=== PATIENT | male | born 1975 | race Native Hawaiian/Other Pacific Islander ===

== ENCOUNTER 2019-01-18 13:26 | Inpatient (IN) | payer OTHER ==
[2019-01-18] MEDS ORDERED: IBUPROFEN 800 MG TAB PO ONE (13:41)
[2019-01-18] MEDS ORDERED: ACETAMINOPHEN 325 MG TAB PO ONE (13:43)
--- NOTE | 2019-01-18 13:45 | Event Note ---
ED Screening Note Date of service: 01/18/19 Time: 13:39 ED Screening Note: Pt complains of cough, fever, and body aches x 4 days arrived from [facility] fever of 103 at home denies productive cough +SOB +smoker This initial assessment/diagnostic orders/clinical plan/treatment(s) is/are sub ject to change based on patients health status, clinical progression and re- assessment by fellow clinical providers in the ED. Further treatment and workup at subsequent clinical providers discretion. Patient/guardian urged not to elope from the ED as their condition may be serious if not clinically assessed and managed. Initial orders include:
--- NOTE | 2019-01-18 14:06 | XRay Report ---
CHEST 2 VIEWS INDICATION: shortness of breath, cough, fever. COMPARISON: None FINDINGS: Support devices: None. Heart: Within normal limits. Lungs/pleura: Mild patchy left basilar airspace disease with otherwise clear lungs. No pneumothorax. Additional findings: None. IMPRESSION: 1. Findings worrisome for pneumonia in the left lower lobe. Signer Name: Sharad Irwin MD Signed: 01/18/2019 2:02 PM Workstation Name: [id number]
[2019-01-18 14:41] LABS: Basophils % (Auto) 0.3 % (0.0-1.8); Eosinophils % (Auto) 0.2 % (0.0-4.3); Hematocrit 46.9 % (35.5-45.6); Lymphocytes # (Auto) 0.6 K/mm3 (1.2-5.4); Lymphocytes % (Auto) 9.3 % (13.4-35.0); Mean Corpuscular HGB Conc 34 % (32-34); Mean Corpuscular Volume 91 fl (84-94); Monocytes # (Auto) 0.3 K/mm3 (0.0-0.8); Monocytes % (Auto) 5.1 % (0.0-7.3); Platelet Count 136 K/mm3 (140-440); Red Blood Count 5.14 M/mm3 (3.65-5.03); Red Cell Distribution Width 13.4 % (13.2-15.2)
[2019-01-18] MEDS ORDERED: IPRATROPIUM/ALBUTEROL SULFATE 3 ML AMPUL.NEB IH ONE (14:48)
[2019-01-18] MEDS ORDERED: methylPREDNISolone Sod Succinate 125 MG/2 ML INJ IV ONE (14:48)
--- NOTE | 2019-01-18 14:51 | Emergency Department Report ---
ED General Adult HPI - General Chief complaint: Nausea/Vomiting/Diarrhea Stated complaint: FLU LIKE SYMPTOMS Time Seen by Provider: 01/18/19 14:40 Source: patient Mode of arrival: Ambulatory Limitations: Language Barrier - History of Present Illness Initial comments: Patient is a 43-year-old male that presents emergent with complaints of flulike symptoms. Patient states she's had a fever for 4 days. Patient states his cough started 2-3 weeks ago. Patient is also complaining of nausea vomiting diarrhea. Patient states he recently traveled to [place] for work and returned this morning. Patient states while in [place] he received antibiotic therapy but did not improve actually made him feel worse. Patient states that his fever has been extremely high going on for 4 days and is not responding to [id number] antipyretics. Patient states he feels warm. Patient states unable to hold any food or water down. Patient denies getting a flu shot this year. Patient denies past medical history. Patient states she's having difficulty breathing. -: Sudden Severity scale (0 -10): 8 - Related Data Home Medications Medication Instructions Recorded Confirmed Last Taken No Known Home Medications [No 01/18/19 01/18/19 Unknown Reported Home Medications] Allergies Allergy/AdvReac Type Severity Reaction Status Date / Time No Known Allergies Allergy Unverified 01/18/19 13:30 ED Review of Systems ROS: Stated complaint: FLU LIKE SYMPTOMS Other details as noted in HPI Constitutional: chills, fever Eyes: denies: eye pain, eye discharge, vision change ENT: denies: ear pain, throat pain Respiratory: cough, shortness of breath, SOB with exertion, SOB at rest, wheezing Cardiovascular: denies: chest pain, palpitations Endocrine: no symptoms reported Gastrointestinal: denies: abdominal pain, nausea, diarrhea Genitourinary: denies: urgency, dysuria Musculoskeletal: denies: back pain, joint swelling, arthralgia Skin: denies: rash, lesions Neurological: denies: headache, weakness, paresthesias Psychiatric: denies: anxiety, depression Hematological/Lymphatic: denies: easy bleeding, easy bruising ED Past Medical Hx - Past Medical History Previous Medical History?: No - Surgical History Past Surgical History?: No - Family History Family history: no significant - Social History Smoking Status: Current Every Day Smoker Substance Use Type: None - Medications Home Medications: Home Medications Medication Instructions Recorded Confirmed Last Taken Type No Known Home Medications [No 10/30/19 10/30/19 Unknown History Reported Home Medications] ED Physical Exam - General Limitations: No Limitations, Language Barrier General appearance: alert, in distress - Head Head exam: Present: atraumatic, normocephalic - Eye Eye exam: Present: normal appearance, PERRL Pupils: Present: normal accommodation - ENT ENT exam: Present: mucous membranes dry - Neck Neck exam: Present: normal inspection - Respiratory Respiratory exam: Present: respiratory distress, wheezes, rhonchi, chest wall tenderness, decreased breath sounds - Cardiovascular Cardiovascular Exam: Present: regular rate, normal rhythm. Absent: systolic murmur, diastolic murmur, rubs, gallop - GI/Abdominal GI/Abdominal exam: Present: soft, normal bowel sounds. Absent: distended, tenderness, guarding - Rectal Rectal exam: Present: deferred - Extremities Exam Extremities exam: Present: normal inspection - Back Exam Back exam: Present: normal inspection - Neurological Exam Neurological exam: Present: alert, oriented X3 - Psychiatric Psychiatric exam: Present: normal affect, normal mood - Skin Skin exam: Present: warm, dry, intact, normal color. Absent: rash ED Course Vital Signs 01/18/19 01/18/19 01/18/19 13:31 13:39 13:47 Temperature 103.0 F H 103.1 F H Pulse Rate 104 H 86 Pulse Rate [ Anterior Bilateral Throughout] Respiratory 18 12 18 Rate Respiratory Rate [Anterior Bilateral Throughout] Blood Pressure 122/84 148/82 O2 Sat by Pulse 95 100 Oximetry 01/18/19 01/18/19 01/18/19 13:48 14:00 14:01 Temperature Pulse Rate Pulse Rate [ Anterior Bilateral Throughout] Respiratory 18 18 Rate Respiratory Rate [Anterior Bilateral Throughout] Blood Pressure O2 Sat by Pulse 96 96 Oximetry 01/18/19 01/18/19 01/18/19 14:10 14:15 14:31 Temperature 100.0 F H Pulse Rate Pulse Rate [ Anterior Bilateral Throughout] Respiratory Rate Respiratory Rate [Anterior Bilateral Throughout] Blood Pressure 124/77 110/62 O2 Sat by Pulse 93 96 Oximetry 01/18/19 01/18/19 01/18/19 14:45 15:00 15:15 Temperature Pulse Rate Pulse Rate [ Anterior Bilateral Throughout] Respiratory Rate Respiratory Rate [Anterior Bilateral Throughout] Blood Pressure 110/62 114/70 133/82 O2 Sat by Pulse 98 95 96 Oximetry 01/18/19 01/18/19 01/18/19 15:31 15:45 15:49 Temperature Pulse Rate Pulse Rate [ 79 Anterior Bilateral Throughout] Respiratory Rate Respiratory 17 Rate [Anterior Bilateral Throughout] Blood Pressure 115/58 108/48 O2 Sat by Pulse 96 98 Oximetry 01/18/19 01/18/19 01/18/19 16:00 16:15 16:30 Temperature Pulse Rate Pulse Rate [ Anterior Bilateral Throughout] Respiratory Rate Respiratory Rate [Anterior Bilateral Throughout] Blood Pressure 118/67 118/67 112/64 O2 Sat by Pulse 98 99 96 Oximetry 01/18/19 01/18/19 01/18/19 16:45 17:00 17:15 Temperature 99.7 F H Pulse Rate 97 H Pulse Rate [ Anterior Bilateral Throughout] Respiratory Rate Respiratory Rate [Anterior Bilateral Throughout] Blood Pressure 135/82 129/80 137/60 O2 Sat by Pulse 99 96 99 Oximetry 01/18/19 01/18/19 01/18/19 17:30 17:45 18:00 Temperature Pulse Rate Pulse Rate [ Anterior Bilateral Throughout] Respiratory Rate Respiratory Rate [Anterior Bilateral Throughout] Blood Pressure 121/61 137/91 135/83 O2 Sat by Pulse 99 97 96 Oximetry 01/18/19 01/18/19 01/18/19 18:11 18:21 18:30 Temperature Pulse Rate Pulse Rate [ Anterior Bilateral Throughout] Respiratory Rate Respiratory Rate [Anterior Bilateral Throughout] Blood Pressure 135/83 121/54 134/73 O2 Sat by Pulse 96 97 95 Oximetry - Reevaluation(s) Reevaluation #1: Discussed all results with patient. I discussed plan of care and admission with patient. Patient agrees with plan of care and admission. Patient will be admitted to the hospital service. Patient is currently 92% on 1 L. Oxygen will be increased. 01/18/19 16:38 - Consultations Consultation #1: Hospitalist consult for admission. Hospitalist admit patient. 01/18/19 16:39 ED Medical Decision Making - Lab Data Result diagrams: 01/18/19 14:24 01/18/19 15:36 - Radiology Data Radiology results: report reviewed, image reviewed CHEST 2 VIEWS INDICATION: shortness of breath, cough, fever. COMPARISON: None FINDINGS: Support devices: None. Heart: Within normal limits. Lungs/pleura: Mild patchy left basilar airspace disease with otherwise clear lungs. No pneumothorax. Additional findings: None. IMPRESSION: 1. Findings worrisome for pneumonia in the left lower lobe. - Medical Decision Making pt is a 43-year-old male that presents to emergency room for cough, fever, shortness of breath. Patient also complains of wheezing. Patient had recent travel outside the country. Patient found to have a left lower lung pneumonia. Patient given antibiotics and steroids. Patient found to be wheezing and given a breathing treatment as well. Patient responded well to treatment. Patient appears to have a influenza even though his flu is negative. Patient's labs unremarkable. Patient admitted to the hospitalist service. Due to the patient's recent travel the patient's differential would also include Legionella's disease, post influenza pneumonia, shortness of breath, bronchitis, hypoxia, cough - Differential Diagnosis cough, fever, shortness of breath, pneumonia, flu Critical Care Time: Yes Critical care time in (mins) excluding proc time.: 35 Critical care attestation.: If time is entered above; I have spent that time in minutes in the direct care of this critically ill patient, excluding procedure time. Critical Care Time: 35 minutes ED Disposition Clinical Impression: Influenza, Cough, Hypoxia Pneumonia Qualifiers: Pneumonia type: due to unspecified organism Laterality: left Lung location: lower lobe of lung Qualified Code(s): J18.1 - Lobar pneumonia, unspecified organism Fever Qualifiers: Fever type: unspecified Qualified Code(s): R50.9 - Fever, unspecified Disposition: DC-09 OP ADMIT IP TO THIS HOSP Is pt being admited?: Yes Does the pt Need Aspirin: No Condition: Critical Time of Disposition: 16:40
[2019-01-18 14:55] LABS: BUN/Creatinine Ratio 18; Blood Urea Nitrogen 16 mg/dL (9-20); Calcium 7.8 mg/dL (8.4-10.2); Hemolysis Index 752
[2019-01-18] MEDS ORDERED: PROMETHAZINE 25 MG TAB PO ONE (15:14)
[2019-01-18] MEDS ORDERED: SODIUM CHLORIDE 0.9% 1000 ML 1,000 ML IV ONE (15:14)
--- NOTE | 2019-01-18 16:50 | History and Physical Report ---
History of Present Illness Chief complaint: I feel sick History of present illness: 43 Yo Male with Nicotine Dependence presents to ED for evaluation. Pt states that he has experienced intermittent coughing over the past 3 weeks with progressively worsening symptoms over the past 4 days. Pt states that he returned to [place] from [place] today after spending several days in the country for work. Pt acknowledges increased frequency of cough, nausea, multiple episodes of vomiting, diarrhea, and generalized weakness. Pt states that he was treated with antibiotics with worsening of the aforementioned symptoms. Pt tr ansported to [facility] via private vehicle. Pt seen and evaluated in ED and found to have Pneumonia, with suspected Legionnaires Disease. Pt admitted to medical floor and initiated on Pneumonia protocol. Pt also acknowledges subjective fever. Pt denies shaking chills, headache, skin rash, syncope, headache, vision changes, dizziness, trauma, known ill contacts. No prior admission for review. No medication listed for reconciliation at time of admission. Past History Past Medical History: other (see hpi) Past Surgical History: No surgical history, Other (reviewed) Social history: , lives with family, smoking Family history: no significant family history (reviewed) Medications and Allergies Allergies Allergy/AdvReac Type Severity Reaction Status Date / Time No Known Allergies Allergy Unverified 01/18/19 13:30 Review of Systems Constitutional: fever, fatigue, weakness, no weight gain, no chills, no sweats Ears, nose, mouth and throat: no ear pain, no ear discharge, no tinnitis, no nose pain, no nasal congestion, no nasal discharge Cardiovascular: no chest pain, no orthopnea, no palpitations, no rapid/irregular heart beat, no edema, no syncope Respiratory: cough, cough with sputum, shortness of breath, dyspnea on exertion, no pain on inspiration Gastrointestinal: no abdominal pain, no nausea, no vomiting Musculoskeletal: no neck stiffness, no neck pain, no shooting arm pain, no arm numbness/tingling, no low back pain, no shooting leg pain, no leg n umbness/tingling Integumentary: no rash, no pruritis, no redness, no sores, no wounds, no jaundice Neurological: no transient paralysis, no paralysis, no weakness, no numbness, no tingling, no seizures, no syncope Psychiatric: no anxiety, no memory loss, no sleep disturbances, no insomnia, no hypersomnia, no change in appetite, no change in libido, no suicidal ideation, no disorientation Endocrine: no cold intolerance, no heat intolerance, no polyphagia, no polydipsia, no polyuria, no excessive sweating, no weight change Hematologic/Lymphatic: no easy bruising, no easy bleeding, no lymphadenopathy, no lymphedema Allergic/Immunologic: no urticaria, no allergic rhinitis, no wheezing, no persistent infections, no angioedema Exam - Constitutional Vitals: Temp Pulse Resp BP Pulse Ox 99.7 F H 97 H 17 112/64 96 01/18/19 16:45 01/18/19 16:45 01/18/19 15:49 01/18/19 16:30 01/18/19 16:30 General appearance: Present: mild distress - EENT Eyes: Present: PERRL ENT: hearing intact, clear oral mucosa - Neck Neck: Present: supple, normal ROM - Respiratory Respiratory effort: normal Respiratory: left: diminished - Cardiovascular Heart Sounds: Present: S1 & S2. Absent: rub, click - Extremities Extremities: pulses symmetrical, No edema Peripheral Pulses: within normal limits - Abdominal General gastrointestinal: Present: soft, non-tender, non-distended, normal bowel sounds Male genitourinary: Present: normal - Integumentary Integumentary: Present: clear, warm, dry - Musculoskeletal Musculoskeletal: gait normal, strength equal bilaterally - Psychiatric Psychiatric: appropriate mood/affect, intact judgment & insight - Neurologic Neurologic: CNII-XII intact, moves all extremities Results - Labs CBC & Chem 7: 01/18/19 14:24 01/18/19 15:36 Labs: Abnormal lab results 01/18/19 01/18/19 Range/Units 14:24 14:24 RBC 5.14 H (3.65-5.03) M/mm3 Hgb 16.0 H (11.8-15.2) gm/dl Hct 46.9 H (35.5-45.6) % Plt Count 136 L (140-440) K/mm3 Lymph % (Auto) 9.3 L (13.4-35.0) % Lymph # 0.6 L (1.2-5.4) K/mm3 Seg Neutrophils % 85.1 H (40.0-70.0) % Sodium 129 L (137-145) mmol/L Carbon Dioxide 19 L (22-30) mmol/L Glucose 103 H (75-100) mg/dL Calcium 7.8 L (8.4-10.2) mg/dL Assessment and Plan - Patient Problems (1) LLL pneumonia Current Visit: Yes Status: Acute Qualifiers: Pneumonia type: due to unspecified organism Qualified Code(s): J18.1 - Lobar pneumonia, unspecified organism Plan to address problem: Pneumonia Protocol: Iv antibiotic therapy, CBC, Chest x ray, CMP, supplemental oxygen, nebulizer therapy. Suspect Legionnaires disease: ESR, CRP, LFT, Ferritin. Will also check influenza A/B. (2) Nicotine dependence Current Visit: Yes Status: Acute Qualifiers: Substance use status: in withdrawal Plan to address problem: +15min smoking cessation, supportive care. (3) Acidosis Current Visit: Yes Status: Acute Plan to address problem: IVF resuscitation therapy, repeat bmp in am. (4) Hyponatremia syndrome Current Visit: Yes Status: Acute Plan to address problem: IVF resuscitation therapy, repeat bmp in am. (5) DVT prophylaxis Current Visit: Yes Status: Acute Plan to address problem: SCd to BLE while in bed, Pt ambulatory
[2019-01-18] MEDS ORDERED: SODIUM CHLORIDE 0.9% 1000 ML 1,000 ML IV SCH (17:00)
[2019-01-18 20:03] LABS: Alanine Aminotransferase 83 units/L (7-56); Albumin 3.7 g/dL (3.9-5)
[2019-01-18 20:06] LABS: Bilirubin,Direct < 0.2 mg/dL (0-0.2)
[2019-01-18] MEDS: ALBUTEROL 2.5 MG/3 ML NEBU IH PRN (21:52)
[2019-01-18] MEDS: SODIUM CHLORIDE 0.9% 1000 ML 1,000 ML IV SCH (22:32)
[2019-01-18] MEDS: BENZONATATE 100 MG CAP PO SCH (23:54)
[2019-01-19] MEDS: BENZONATATE 100 MG CAP PO SCH ×3 (05:39→21:30)
[2019-01-19] MEDS: SODIUM CHLORIDE 0.9% 1000 ML 1,000 ML IV SCH ×2 (05:39→18:56)
[2019-01-19] MEDS: ACETAMINOPHEN 325 MG TAB PO PRN ×5 (05:40→23:08)
[2019-01-19 06:26] LABS: Basophils % (Auto) 0.1 % (0.0-1.8); Hematocrit 44.4 % (35.5-45.6); Hemoglobin 15.1 gm/dl (11.8-15.2); Lymphocytes # (Auto) 0.5 K/mm3 (1.2-5.4); Mean Corpuscular HGB Conc 34 % (32-34); Mean Corpuscular Volume 92 fl (84-94); Monocytes # (Auto) 0.3 K/mm3 (0.0-0.8); Monocytes % (Auto) 5.3 % (0.0-7.3); Platelet Count 135 K/mm3 (140-440); Red Blood Count 4.81 M/mm3 (3.65-5.03); Red Cell Distribution Width 13.5 % (13.2-15.2)
[2019-01-19 06:58] LABS: Alanine Aminotransferase 73 units/L (7-56); Albumin 3.4 g/dL (3.9-5); BUN/Creatinine Ratio 20; Blood Urea Nitrogen 14 mg/dL (9-20); Calcium 7.8 mg/dL (8.4-10.2); Hemolysis Index 18
[2019-01-19] MEDS: cefTRIAXone/NS 2 GM/100 ML 2 GM/100 ML BAG IV SCH (09:18)
[2019-01-19] MEDS: AZITHROMYCIN 500 MG in SODIUM CHLORIDE 0.9% 250ML 250 ML IV SCH (10:30)
--- NOTE | 2019-01-19 11:35 | Progress Note ---
Assessment and Plan Assessment and plan: Left lower lobe pneumonia. Continue IV antibiotics. Follow up serial chest x- ray. Hyponatremia. 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 Follow-up BMP. Tobacco abuse. Patient has been counseled on smoking cessation. Disposition. Anticipate discharge in next 1-2 days. History Interval history: No new issues overnight. Hospitalist Physical - Constitutional Vitals: Temp Pulse Resp BP Pulse Ox 101.6 F H 89 18 115/65 95 01/19/19 10:32 01/19/19 05:10 01/19/19 08:35 01/19/19 05:10 01/19/19 05:10 General appearance: Present: no acute distress - EENT Eyes: Present: PERRL, EOM intact ENT: hearing intact, clear oral mucosa, dentition normal - Neck Neck: Present: supple, normal ROM - Respiratory Respiratory effort: normal Respiratory: bilateral: CTA - Cardiovascular Rhythm: regular Heart Sounds: Present: S1 & S2. Absent: gallop, rub - Extremities Extremities: no ischemia, No edema, Full ROM - Abdominal General gastrointestinal: soft, non-tender, non-distended, normal bowel sounds - Integumentary Integumentary: Present: clear, warm, dry - Neurologic Neurologic: CNII-XII intact, moves all extremities Results - Labs CBC & Chem 7: 01/19/19 05:23 01/19/19 05:23 Labs: Laboratory Last Values WBC 6.0 K/mm3 (4.5-11.0) 01/19/19 05:23 RBC 4.81 M/mm3 (3.65-5.03) 01/19/19 05:23 Hgb 15.1 gm/dl (11.8-15.2) 01/19/19 05:23 Hct 44.4 % (35.5-45.6) 01/19/19 05:23 MCV 92 fl (84-94) 01/19/19 05:23 MCH 31 pg (28-32) 01/19/19 05:23 MCHC 34 % (32-34) 01/19/19 05:23 RDW 13.5 % (13.2-15.2) 01/19/19 05:23 Plt Count 135 K/mm3 (140-440) L 01/19/19 05:23 Lymph % (Auto) 8.0 % (13.4-35.0) L 01/19/19 05:23 Mccreary % (Auto) 5.3 % (0.0-7.3) 01/19/19 05:23 Eos % (Auto) 0.0 % (0.0-4.3) 01/19/19 05:23 Baso % (Auto) 0.1 % (0.0-1.8) 01/19/19 05:23 Lymph # 0.5 K/mm3 (1.2-5.4) L 01/19/19 05:23 Mccreary # 0.3 K/mm3 (0.0-0.8) 01/19/19 05:23 Eos # 0.0 K/mm3 (0.0-0.4) 01/19/19 05:23 Baso # 0.0 K/mm3 (0.0-0.1) 01/19/19 05:23 Seg Neutrophils % 86.6 % (40.0-70.0) H 01/19/19 05:23 Seg Neutrophils # 5.2 K/mm3 (1.8-7.7) 01/19/19 05:23 ESR 2 mm/Hr (0-20) 01/18/19 19:14 Sodium 137 mmol/L (137-145) D 01/19/19 05:23 Potassium 4.3 mmol/L (3.6-5.0) 01/19/19 05:23 Chloride 104.3 mmol/L (98-107) 01/19/19 05:23 Carbon Dioxide 17 mmol/L (22-30) L 01/19/19 05:23 Anion Gap 20 mmol/L 01/19/19 05:23 BUN 14 mg/dL (9-20) 01/19/19 05:23 Creatinine 0.7 mg/dL (0.8-1.5) L 01/19/19 05:23 Estimated GFR > 60 ml/min 01/19/19 05:23 BUN/Creatinine Ratio 20 % 01/19/19 05:23 Glucose 143 mg/dL (75-100) H 01/19/19 05:23 Lactic Acid 1.60 mmol/L (0.7-2.0) 01/18/19 14:24 Calcium 7.8 mg/dL (8.4-10.2) L 01/19/19 05:23 Ferritin 671.0 ng/mL (13.0-400.0) H 01/18/19 19:13 Total Bilirubin 0.30 mg/dL (0.1-1.2) 01/19/19 05:23 Direct Bilirubin < 0.2 mg/dL (0-0.2) 01/18/19 19:14 Indirect Bilirubin 0.1 mg/dL 01/18/19 19:14 AST 94 units/L (5-40) H 01/19/19 05:23 ALT 73 units/L (7-56) H 01/19/19 05:23 Alkaline Phosphatase 54 units/L (35-129) 01/19/19 05:23 C-Reactive Protein 11.10 mg/dL (0.00-1.30) H 01/18/19 19:14 Total Protein 6.6 g/dL (6.3-8.2) 01/19/19 05:23 Albumin 3.4 g/dL (3.9-5) L 01/19/19 05:23 Albumin/Globulin Ratio 1.1 % 01/19/19 05:23 Influenza A (Rapid) Negative (Negative) 01/18/19 Unknown Influenza B (Rapid) Negative (Negative) 01/18/19 Unknown Active Medications - Current Medications Current Medications: Generic Name Dose Route Start Last Admin Trade Name Freq PRN Reason Stop Dose Admin Acetaminophen 650 mg 01/18/19 16:47 01/19/19 10:35 Tylenol PO 650 mg Q4H PRN Administration Pain MILD(1-3)/Fever >100.5/HELMS Albuterol 2.5 mg 01/18/19 16:47 01/18/19 21:52 Proventil IH 2.5 mg Q4HRT PRN Administration Shortness Of Breath Benzonatate 200 mg 01/18/19 23:00 01/19/19 05:39 Tessalon Perles PO 200 mg Q8HR ANCELMO Administration Ceftriaxone Sodium 2 gm in 100 mls @ 200 mls/hr 01/19/19 10:00 01/19/19 09:18 Rocephin/Ns 2 Gm/100 Ml IV 200 mls/hr Q24HR ANCELMO Administration Protocol Azithromycin 500 mg/ Sodium 250 mls @ 250 mls/hr 01/19/19 10:00 01/19/19 10:30 Chloride IV 250 mls/hr Q24HR ANCELMO Administration Protocol Sodium Chloride 1,000 mls @ 125 mls/hr 01/18/19 19:00 01/19/19 05:39 Nacl 0.9% 1000 Ml IV 125 mls/hr DIRECT ANCELMO Administration Ondansetron HCl 4 mg 01/18/19 16:47 Zofran IV Q8H PRN Nausea And Vomiting Sodium Chloride 10 ml 01/18/19 22:00 01/19/19 09:18 Sodium Chloride Flush Syringe 10 Ml IV 10 ml BID ANCELMO Administration Sodium Chloride 10 ml 01/18/19 16:47 Sodium Chloride Flush Syringe 10 Ml IV PRN PRN LINE FLUSH
[2019-01-19] MEDS: ALBUTEROL 2.5 MG/3 ML NEBU IH PRN (13:27)
[2019-01-20 03:27] LABS: Bacteria,Urine 1+ /HPF (Negative); Bilirubin,Urine NEG (Negative); Blood,Urine MOD (Negative); Color,Urine Yellow (Yellow); Mucus,Urine FEW /HPF; Urobilinogen,Urine < 2.0 mg/dL (<2.0)
[2019-01-20] MEDS: SODIUM CHLORIDE 0.9% 1000 ML 1,000 ML IV SCH ×2 (03:27→21:36)
[2019-01-20] MEDS: ACETAMINOPHEN 325 MG TAB PO PRN ×3 (05:51→17:42)
[2019-01-20] MEDS: BENZONATATE 100 MG CAP PO SCH ×3 (05:51→21:36)
[2019-01-20] MEDS: cefTRIAXone/NS 2 GM/100 ML 2 GM/100 ML BAG IV SCH (09:08)
[2019-01-20] MEDS: AZITHROMYCIN 500 MG in SODIUM CHLORIDE 0.9% 250ML 250 ML IV SCH (10:44)
--- NOTE | 2019-01-20 12:24 | Progress Note ---
Assessment and Plan Assessment and plan: Sepsis. Present on admission. Patient meets criteria given fever, tachycardia, tachypnea and diagnosis of pneumonia. Follow-up blood cultures. Left lower lobe pneumonia. Continue IV antibiotics. Follow up serial chest x- ray. Hyponatremia. 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 Follow-up BMP. Tobacco abuse. Patient has been counseled on smoking cessation. History Interval history: No new issues overnight. Hospitalist Physical - Constitutional Vitals: Temp Pulse Resp BP Pulse Ox 102.2 F H 100 H 28 H 131/83 94 01/20/19 05:00 01/20/19 05:00 01/20/19 10:32 01/20/19 05:00 01/20/19 05:00 General appearance: Present: no acute distress - EENT Eyes: Present: PERRL, EOM intact ENT: hearing intact, clear oral mucosa, dentition normal - Neck Neck: Present: supple, normal ROM - Respiratory Respiratory effort: normal Respiratory: bilateral: CTA - Cardiovascular Rhythm: regular Heart Sounds: Present: S1 & S2. Absent: gallop, rub - Extremities Extremities: no ischemia, No edema, Full ROM - Abdominal General gastrointestinal: soft, non-tender, non-distended, normal bowel sounds - Integumentary Integumentary: Present: clear, warm, dry - Neurologic Neurologic: CNII-XII intact, moves all extremities Results - Labs CBC & Chem 7: 01/19/19 05:23 01/19/19 05:23 Labs: Laboratory Last Values WBC 6.0 K/mm3 (4.5-11.0) 01/19/19 05:23 RBC 4.81 M/mm3 (3.65-5.03) 01/19/19 05:23 Hgb 15.1 gm/dl (11.8-15.2) 01/19/19 05:23 Hct 44.4 % (35.5-45.6) 01/19/19 05:23 MCV 92 fl (84-94) 01/19/19 05:23 MCH 31 pg (28-32) 01/19/19 05:23 MCHC 34 % (32-34) 01/19/19 05:23 RDW 13.5 % (13.2-15.2) 01/19/19 05:23 Plt Count 135 K/mm3 (140-440) L 01/19/19 05:23 Lymph % (Auto) 8.0 % (13.4-35.0) L 01/19/19 05:23 [place] % (Auto) 5.3 % (0.0-7.3) 01/19/19 05:23 Eos % (Auto) 0.0 % (0.0-4.3) 01/19/19 05:23 Baso % (Auto) 0.1 % (0.0-1.8) 01/19/19 05:23 Lymph # 0.5 K/mm3 (1.2-5.4) L 01/19/19 05:23 [place] # 0.3 K/mm3 (0.0-0.8) 01/19/19 05:23 Eos # 0.0 K/mm3 (0.0-0.4) 01/19/19 05:23 Baso # 0.0 K/mm3 (0.0-0.1) 01/19/19 05:23 Seg Neutrophils % 86.6 % (40.0-70.0) H 01/19/19 05:23 Seg Neutrophils # 5.2 K/mm3 (1.8-7.7) 01/19/19 05:23 ESR 2 mm/Hr (0-20) 01/18/19 19:14 Sodium 137 mmol/L (137-145) D 01/19/19 05:23 Potassium 4.3 mmol/L (3.6-5.0) 01/19/19 05:23 Chloride 104.3 mmol/L (98-107) 01/19/19 05:23 Carbon Dioxide 17 mmol/L (22-30) L 01/19/19 05:23 Anion Gap 20 mmol/L 01/19/19 05:23 BUN 14 mg/dL (9-20) 01/19/19 05:23 Creatinine 0.7 mg/dL (0.8-1.5) L 01/19/19 05:23 Estimated GFR > 60 ml/min 01/19/19 05:23 BUN/Creatinine Ratio 20 % 01/19/19 05:23 Glucose 143 mg/dL (75-100) H 01/19/19 05:23 Lactic Acid 1.60 mmol/L (0.7-2.0) 01/18/19 14:24 Calcium 7.8 mg/dL (8.4-10.2) L 01/19/19 05:23 Ferritin 671.0 ng/mL (13.0-400.0) H 01/18/19 19:13 Total Bilirubin 0.30 mg/dL (0.1-1.2) 01/19/19 05:23 Direct Bilirubin < 0.2 mg/dL (0-0.2) 01/18/19 19:14 Indirect Bilirubin 0.1 mg/dL 01/18/19 19:14 AST 94 units/L (5-40) H 01/19/19 05:23 ALT 73 units/L (7-56) H 01/19/19 05:23 Alkaline Phosphatase 54 units/L (35-129) 01/19/19 05:23 C-Reactive Protein 11.10 mg/dL (0.00-1.30) H 01/18/19 19:14 Total Protein 6.6 g/dL (6.3-8.2) 01/19/19 05:23 Albumin 3.4 g/dL (3.9-5) L 01/19/19 05:23 Albumin/Globulin Ratio 1.1 % 01/19/19 05:23 Urine Color Yellow (Yellow) 01/20/19 03:00 Urine Turbidity Clear (Clear) 01/20/19 03:00 Urine pH 6.0 (5.0-7.0) 01/20/19 03:00 Ur Specific [place] 1.016 (1.003-1.030) 01/20/19 03:00 Urine Protein 30 mg/dl mg/dL (Negative) 01/20/19 03:00 Urine Glucose (UA) Neg mg/dL (Negative) 01/20/19 03:00 Urine Ketones Tr mg/dL (Negative) 01/20/19 03:00 Urine Blood Mod (Negative) 01/20/19 03:00 Urine Nitrite Neg (Negative) 01/20/19 03:00 Urine Bilirubin Neg (Negative) 01/20/19 03:00 Urine Urobilinogen < 2.0 mg/dL (<2.0) 01/20/19 03:00 Ur Leukocyte Esterase Neg (Negative) 01/20/19 03:00 Urine WBC (Auto) 1.0 /HPF (0.0-6.0) 01/20/19 03:00 Urine RBC (Auto) 1.0 /HPF (0.0-6.0) 01/20/19 03:00 U Epithel Cells (Auto) < 1.0 /HPF (0-13.0) 01/20/19 03:00 Urine Bacteria (Auto) 1+ /HPF (Negative) 01/20/19 03:00 Urine Mucus Few /HPF 01/20/19 03:00 C. difficile Tox (PCR) Negative (Negative) 01/20/19 02:20 Influenza A (Rapid) Negative (Negative) 01/18/19 Unknown Influenza B (Rapid) Negative (Negative) 01/18/19 Unknown Active Medications - Current Medications Current Medications: Generic Name Dose Route Start Last Admin Trade Name Freq PRN Reason Stop Dose Admin Acetaminophen 650 mg 01/18/19 16:47 01/20/19 10:32 Tylenol PO 650 mg Q4H PRN Administration Pain MILD(1-3)/Fever >100.5/HELMS Albuterol 2.5 mg 01/18/19 16:47 01/19/19 13:27 Proventil IH 2.5 mg Q4HRT PRN Administration Shortness Of Breath Benzonatate 200 mg 01/18/19 23:00 01/20/19 05:51 Tessalon Perles PO 200 mg Q8HR ANCELMO Administration Ceftriaxone Sodium 2 gm in 100 mls @ 200 mls/hr 01/19/19 10:00 01/20/19 09:08 Rocephin/Ns 2 Gm/100 Ml IV 200 mls/hr Q24HR ANCELMO Administration Protocol Azithromycin 500 mg/ Sodium 250 mls @ 250 mls/hr 01/19/19 10:00 01/20/19 10:44 Chloride IV 250 mls/hr Q24HR ANCELMO Administration Protocol Sodium Chloride 1,000 mls @ 125 mls/hr 01/18/19 19:00 01/20/19 03:27 Nacl 0.9% 1000 Ml IV 125 mls/hr DIRECT ANCELMO Administration Ondansetron HCl 4 mg 01/18/19 16:47 Zofran IV Q8H PRN Nausea And Vomiting Sodium Chloride 10 ml 01/18/19 22:00 01/20/19 10:36 Sodium Chloride Flush Syringe 10 Ml IV 10 ml BID ANCELMO Administration Sodium Chloride 10 ml 01/18/19 16:47 Sodium Chloride Flush Syringe 10 Ml IV PRN PRN LINE FLUSH
[2019-01-20] MEDS: ONDANSETRON 4 MG/2 ML INJ IV PRN (17:57)
[2019-01-20] MEDS: LOPERAMIDE 2 MG CAP PO PRN (18:33)
[2019-01-21] MEDS: SODIUM CHLORIDE 0.9% 1000 ML 1,000 ML IV SCH ×2 (05:17→18:13)
[2019-01-21] MEDS: BENZONATATE 100 MG CAP PO SCH ×3 (05:23→21:26)
[2019-01-21] MEDS: ACETAMINOPHEN 325 MG TAB PO PRN ×2 (05:45→13:36)
--- NOTE | 2019-01-21 11:05 | Progress Note ---
Assessment and Plan Assessment and plan: Sepsis. Present on admission. Patient meets criteria given fever, tachycardia, tachypnea and diagnosis of pneumonia. Follow-up blood cultures. Left lower lobe pneumonia. Continue IV antibiotics. Follow up serial chest x- ray. Hyponatremia. 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 Follow-up BMP. Tobacco abuse. Patient has been counseled on smoking cessation. Disposition. Discharge if afebrile > 24 hours and blood cultures negative 48 hours. History Interval history: No new issues overnight. Hospitalist Physical - Constitutional Vitals: Temp Pulse Resp BP Pulse Ox 99.1 F 89 22 126/70 93 01/21/19 09:35 01/21/19 05:36 01/21/19 05:45 01/21/19 05:36 01/21/19 05:36 General appearance: Present: no acute distress - EENT Eyes: Present: PERRL, EOM intact ENT: hearing intact, clear oral mucosa, dentition normal - Neck Neck: Present: supple, normal ROM - Respiratory Respiratory effort: normal Respiratory: bilateral: CTA - Cardiovascular Rhythm: regular Heart Sounds: Present: S1 & S2. Absent: gallop, rub - Extremities Extremities: no ischemia, No edema, Full ROM - Abdominal General gastrointestinal: soft, non-tender, non-distended, normal bowel sounds - Integumentary Integumentary: Present: clear, warm, dry - Neurologic Neurologic: CNII-XII intact, moves all extremities Results - Labs CBC & Chem 7: 01/19/19 05:23 01/19/19 05:23 Labs: Laboratory Last Values WBC 6.0 K/mm3 (4.5-11.0) 01/19/19 05:23 RBC 4.81 M/mm3 (3.65-5.03) 01/19/19 05:23 Hgb 15.1 gm/dl (11.8-15.2) 01/19/19 05:23 Hct 44.4 % (35.5-45.6) 01/19/19 05:23 MCV 92 fl (84-94) 01/19/19 05:23 MCH 31 pg (28-32) 01/19/19 05:23 MCHC 34 % (32-34) 01/19/19 05:23 RDW 13.5 % (13.2-15.2) 01/19/19 05:23 Plt Count 135 K/mm3 (140-440) L 01/19/19 05:23 Lymph % (Auto) 8.0 % (13.4-35.0) L 01/19/19 05:23 [place] % (Auto) 5.3 % (0.0-7.3) 01/19/19 05:23 Eos % (Auto) 0.0 % (0.0-4.3) 01/19/19 05:23 Baso % (Auto) 0.1 % (0.0-1.8) 01/19/19 05:23 Lymph # 0.5 K/mm3 (1.2-5.4) L 01/19/19 05:23 [place] # 0.3 K/mm3 (0.0-0.8) 01/19/19 05:23 Eos # 0.0 K/mm3 (0.0-0.4) 01/19/19 05:23 Baso # 0.0 K/mm3 (0.0-0.1) 01/19/19 05:23 Seg Neutrophils % 86.6 % (40.0-70.0) H 01/19/19 05:23 Seg Neutrophils # 5.2 K/mm3 (1.8-7.7) 01/19/19 05:23 ESR 2 mm/Hr (0-20) 01/18/19 19:14 Sodium 137 mmol/L (137-145) D 01/19/19 05:23 Potassium 4.3 mmol/L (3.6-5.0) 01/19/19 05:23 Chloride 104.3 mmol/L (98-107) 01/19/19 05:23 Carbon Dioxide 17 mmol/L (22-30) L 01/19/19 05:23 Anion Gap 20 mmol/L 01/19/19 05:23 BUN 14 mg/dL (9-20) 01/19/19 05:23 Creatinine 0.7 mg/dL (0.8-1.5) L 01/19/19 05:23 Estimated GFR > 60 ml/min 01/19/19 05:23 BUN/Creatinine Ratio 20 % 01/19/19 05:23 Glucose 143 mg/dL (75-100) H 01/19/19 05:23 Lactic Acid 1.60 mmol/L (0.7-2.0) 01/18/19 14:24 Calcium 7.8 mg/dL (8.4-10.2) L 01/19/19 05:23 Ferritin 671.0 ng/mL (13.0-400.0) H 01/18/19 19:13 Total Bilirubin 0.30 mg/dL (0.1-1.2) 01/19/19 05:23 Direct Bilirubin < 0.2 mg/dL (0-0.2) 01/18/19 19:14 Indirect Bilirubin 0.1 mg/dL 01/18/19 19:14 AST 94 units/L (5-40) H 01/19/19 05:23 ALT 73 units/L (7-56) H 01/19/19 05:23 Alkaline Phosphatase 54 units/L (35-129) 01/19/19 05:23 C-Reactive Protein 11.10 mg/dL (0.00-1.30) H 01/18/19 19:14 Total Protein 6.6 g/dL (6.3-8.2) 01/19/19 05:23 Albumin 3.4 g/dL (3.9-5) L 01/19/19 05:23 Albumin/Globulin Ratio 1.1 % 01/19/19 05:23 Urine Color Yellow (Yellow) 01/20/19 03:00 Urine Turbidity Clear (Clear) 01/20/19 03:00 Urine pH 6.0 (5.0-7.0) 01/20/19 03:00 Ur Specific [place] 1.016 (1.003-1.030) 01/20/19 03:00 Urine Protein 30 mg/dl mg/dL (Negative) 01/20/19 03:00 Urine Glucose (UA) Neg mg/dL (Negative) 01/20/19 03:00 Urine Ketones Tr mg/dL (Negative) 01/20/19 03:00 Urine Blood Mod (Negative) 01/20/19 03:00 Urine Nitrite Neg (Negative) 01/20/19 03:00 Urine Bilirubin Neg (Negative) 01/20/19 03:00 Urine Urobilinogen < 2.0 mg/dL (<2.0) 01/20/19 03:00 Ur Leukocyte Esterase Neg (Negative) 01/20/19 03:00 Urine WBC (Auto) 1.0 /HPF (0.0-6.0) 01/20/19 03:00 Urine RBC (Auto) 1.0 /HPF (0.0-6.0) 01/20/19 03:00 U Epithel Cells (Auto) < 1.0 /HPF (0-13.0) 01/20/19 03:00 Urine Bacteria (Auto) 1+ /HPF (Negative) 01/20/19 03:00 Urine Mucus Few /HPF 01/20/19 03:00 C. difficile Tox (PCR) Negative (Negative) 01/20/19 02:20 Influenza A (Rapid) Negative (Negative) 01/18/19 Unknown Influenza B (Rapid) Negative (Negative) 01/18/19 Unknown Active Medications - Current Medications Current Medications: Generic Name Dose Route Start Last Admin Trade Name Freq PRN Reason Stop Dose Admin Acetaminophen 650 mg 01/18/19 16:47 01/21/19 05:45 Tylenol PO 650 mg Q4H PRN Administration Pain MILD(1-3)/Fever >100.5/HELMS Albuterol 2.5 mg 01/18/19 16:47 01/19/19 13:27 Proventil IH 2.5 mg Q4HRT PRN Administration Shortness Of Breath Benzonatate 200 mg 01/18/19 23:00 01/21/19 05:23 Tessalon Perles PO 200 mg Q8HR ANCELMO Administration Ceftriaxone Sodium 2 gm in 100 mls @ 200 mls/hr 01/19/19 10:00 01/20/19 09:08 Rocephin/Ns 2 Gm/100 Ml IV 200 mls/hr Q24HR ANCELMO Administration Protocol Azithromycin 500 mg/ Sodium 250 mls @ 250 mls/hr 01/19/19 10:00 01/20/19 10:44 Chloride IV 250 mls/hr Q24HR ANCELMO Administration Protocol Sodium Chloride 1,000 mls @ 125 mls/hr 01/18/19 19:00 01/21/19 05:17 Nacl 0.9% 1000 Ml IV 125 mls/hr DIRECT ANCELMO Administration Loperamide HCl 2 mg 01/20/19 17:50 01/20/19 18:33 Imodium PO 2 mg Q4H PRN Administration Diarrhea Ondansetron HCl 4 mg 01/18/19 16:47 01/20/19 17:57 Zofran IV 4 mg Q8H PRN Administration Nausea And Vomiting Sodium Chloride 10 ml 01/18/19 22:00 01/20/19 22:23 Sodium Chloride Flush Syringe 10 Ml IV 10 ml BID ANCELMO Administration Sodium Chloride 10 ml 01/18/19 16:47 Sodium Chloride Flush Syringe 10 Ml IV PRN PRN LINE FLUSH
[2019-01-21] MEDS: cefTRIAXone/NS 2 GM/100 ML 2 GM/100 ML BAG IV SCH (11:52)
[2019-01-21] MEDS: ONDANSETRON 4 MG/2 ML INJ IV PRN (12:21)
[2019-01-21] MEDS: AZITHROMYCIN 500 MG in SODIUM CHLORIDE 0.9% 250ML 250 ML IV SCH (13:36)
[2019-01-21] MEDS: LOPERAMIDE 2 MG CAP PO PRN (13:37)
[2019-01-22] MEDS: SODIUM CHLORIDE 0.9% 1000 ML 1,000 ML IV SCH ×2 (01:42→08:25)
[2019-01-22] MEDS: BENZONATATE 100 MG CAP PO SCH (05:59)
[2019-01-22 07:16] VITALS: BP 143/92
--- NOTE | 2019-01-22 07:49 | Discharge Summary ---
Providers - Providers Date of Admission: 01/18/19 16:47 Date of discharge: 01/22/19 Attending physician: MADISON ALAN Primary care physician: BLADE WORKER Hospitalization Reason for admission: pna Condition: Critical Hospital course: 43-year-old male presented through the emergency department with chief complaint of cough cold-like symptoms for 4 days prior to admission. Chest x-ray revealed left lower lobe infiltrate. The patient was admitted with diagnosis of left lower pneumonia. The patient was treated with IV antibiotics and blood cultures were drawn which were negative. Patient's WBC remains stable. Patient was felt to have received maximal hospital benefit and will be discharged home. Dedicated discharge time 32 minutes. Disposition: TO HOME OR SELFCARE Time spent for discharge: 32 - Discharge Diagnoses (1) Cough Status: Acute (2) Fever Status: Acute Qualifiers: Fever type: unspecified Qualified Code(s): R50.9 - Fever, unspecified (3) LLL pneumonia Status: Acute Qualifiers: Pneumonia type: due to unspecified organism Qualified Code(s): J18.1 - Lobar pneumonia, unspecified organism Core Measure Documentation - Palliative Care Palliative Care/ Comfort Measures: Not Applicable - Core Measures Any of the following diagnoses?: none Exam - Constitutional Vitals: Temp Pulse Resp BP Pulse Ox 98.3 F 74 18 143/92 91 01/22/19 06:08 01/22/19 06:08 01/22/19 06:08 01/22/19 06:08 01/22/19 06:08 General appearance: Present: no acute distress, well-nourished - EENT Eyes: Present: PERRL ENT: hearing intact, clear oral mucosa - Neck Neck: Present: supple, normal ROM - Respiratory Respiratory effort: normal Respiratory: bilateral: CTA - Cardiovascular Heart Sounds: Present: S1 & S2. Absent: rub, click - Extremities Extremities: pulses symmetrical, No edema Peripheral Pulses: within normal limits - Abdominal General gastrointestinal: Present: soft, non-tender, non-distended, normal bowel sounds Male genitourinary: Present: normal - Integumentary Integumentary: Present: clear, warm, dry - Musculoskeletal Musculoskeletal: gait normal, strength equal bilaterally - Psychiatric Psychiatric: appropriate mood/affect, intact judgment & insight - Neurologic Neurologic: CNII-XII intact, moves all extremities Plan Activity: advance as tolerated Weight Bearing Status: Weight Bear as Tolerated Diet: regular Follow up with: PRIMARY CARE, [Primary Care Provider] - 3-5 Days Prescriptions: Benzonatate [Tessalon Perles] 200 mg PO Q8HR #15 capsule Azithromycin [Zithromax TAB] 500 mg PO QDAY #7 tablet
[2019-01-22] MEDS: ACETAMINOPHEN 325 MG TAB PO PRN (08:25)
[2019-01-22] MEDS: ONDANSETRON 4 MG/2 ML INJ IV PRN (08:32)
== END 2019-01-22 13:25 | disposition home or self-care (01) | DRG 871 ==
LOC: ED 13:26 → 3A 16:47
PROVIDERS: ADMIT Internal Medicine; ATTEND Hospitalist
DX: A41.9 Sepsis, unspecified organism (principal); J18.9 Pneumonia, unspecified organism; J10.00 Influenza due to other identified influenza virus with unspecified type of pneumonia; F17.213 Nicotine dependence, cigarettes, with withdrawal; E87.2 Acidosis; E22.2 Syndrome of inappropriate secretion of antidiuretic hormone; Z71.6 Tobacco abuse counseling
CPT/HCPCS: 36415; 71046; 80048; 80053; 80076; 81001; 82140; 82728; 84132; 85025; 85652; 86140; 87040; 87400; 87493; 94640; 94644; 94760; 96365; 96375; 99406; G0378; J0456; J0696; J1956; J2405; J2930; J7030; J7050; Q0169

== ENCOUNTER 2020-04-19 17:08 | Inpatient (IN) | payer OTHER ==
--- NOTE | 2020-04-19 17:31 | Emergency Department Report ---
ED Shortness of Breath HPI - General Chief Complaint: Dyspnea/Respdistress Stated Complaint: DIFFICULTY BREATHING Time Seen by Provider: 04/19/20 17:18 Source: patient, EMS Mode of arrival: Stretcher Limitations: No Limitations - History of Present Illness Initial Comments: History obtained from patient and electronic medical record. This is a 44-year-old male who is a former smoker otherwise no significant past medical history who who presents to emergency department for shortness of breath. Patient arrived via EMS. Patient was evaluated by by PCP today. Patient has had shortness of breath since Wednesday. He has had cough for the past 3 weeks. He assumed that he had COVID-19 infection. Patient was diagnosed with pneumothorax right-sided outpatient chest radiograph today. Consequently patient was transported from PCPs office via ambulance. Patient denies pain. He denies fever. He denies loss of taste or smell. Denies abdominal pain or diarrhea. He stopped smoking tobacco 1 year ago. He lives with his and 6 children. Also lives with his brother. He works for the [employer]. He works in [employer]. Patient has extensive family history of diabetes mellitus. According to electronic medical record, in 2019 patient was admitted to this hospital for community-acquired pneumonia. I Used [employer] [place] line double needle operator lockstitch per phone to obtain history. Complaint: shortness of breath -: Gradual, days(s) (3) Severity: mild Consistency: constant Improves With: oxygen Worsens With: nothing Known History Of: other (History of pneumonia, former smoker) Context: recent URI (Persistent cough for 3 weeks) Associated Symptoms: other (Cough shortness of breath) Treatments Prior to Arrival: oxygen, other (EMS transport) - Related Data Home Oxygen Therapy: No Previous Rx's Medication Instructions Recorded Last Taken Type Azithromycin [Zithromax TAB] 500 mg PO QDAY #7 tablet 01/22/19 Unknown Rx Benzonatate [Tessalon Perles] 200 mg PO Q8HR #15 capsule 01/22/19 Unknown Rx Allergies Allergy/AdvReac Type Severity Reaction Status Date / Time No Known Allergies Allergy Unverified 01/18/19 13:30 ED Review of Systems ROS: Stated complaint: DIFFICULTY BREATHING Other details as noted in HPI Comment: All other systems reviewed and negative Constitutional: denies: fever, malaise Respiratory: cough, shortness of breath Cardiovascular: denies: chest pain Gastrointestinal: denies: abdominal pain, nausea, vomiting ED Past Medical Hx - Past Medical History Previous Medical History?: No Hx Heart Attack/AMI: No Hx Congestive Heart Failure: No Hx Diabetes: No Hx Asthma: No Hx COPD: No - Surgical History Past Surgical History?: Yes Additional Surgical History: Vasectomy - Family History Family history: diabetes - Social History Smoking Status: Former Smoker Substance Use Type: None - Medications Home Medications: Home Medications Medication Instructions Recorded Confirmed Last Taken Type Azithromycin [Zithromax TAB] 500 mg PO QDAY #7 tablet 01/22/19 Unknown Rx Benzonatate [Tessalon Perles] 200 mg PO Q8HR #15 capsule 01/22/19 Unknown Rx ED Physical Exam - General Limitations: No Limitations General appearance: alert, in no apparent distress, other (Speaking for sentences, appears mildly out of breath) - Head Head exam: Present: atraumatic, normocephalic - Eye Eye exam: Present: normal appearance - ENT ENT exam: Present: mucous membranes moist - Neck Neck exam: Present: normal inspection, full ROM - Respiratory Respiratory exam: Present: respiratory distress, decreased breath sounds (Decreased breath sounds on the right). Absent: wheezes, rales, rhonchi - Cardiovascular Cardiovascular Exam: Present: regular rate, normal rhythm, normal heart sounds. Absent: systolic murmur, diastolic murmur, rubs, gallop - GI/Abdominal GI/Abdominal exam: Present: soft, normal bowel sounds. Absent: distended, ten derness, guarding, rebound - Rectal Rectal exam: Present: deferred - Extremities Exam Extremities exam: Present: normal inspection - Neurological Exam Neurological exam: Present: alert, oriented X3 - Psychiatric Psychiatric exam: Present: normal affect, normal mood - Skin Skin exam: Present: warm, dry, intact, normal color. Absent: rash ED Course Vital Signs 04/19/20 04/19/20 17:23 18:05 Temperature 98.4 F Pulse Rate 99 H Respiratory 22 18 Rate Blood Pressure 120/87 O2 Sat by Pulse 97 97 Oximetry ED Medical Decision Making - Lab Data Result diagrams: 04/19/20 18:37 04/19/20 18:37 - Radiology Data Radiology results: report reviewed, image reviewed CHEST 1 VIEW 04/19/2020 4:46 PM INDICATION / CLINICAL INFORMATION: Dyspnea. Pneumothorax on chest x-ray performed at physician's office. COMPARISON: 2 views of the chest from 01/18/2019. FINDINGS: SUPPORT DEVICES: None. HEART / MEDIASTINUM: No significant abnormality. LUNGS / PLEURA: There is a large right pneumothorax with associated atelectasis. Generalized left pulmonary opacities are also noted. No significant pleural effusion. ADDITIONAL FINDINGS: No significant additional findings. IMPRESSION: 1. Large right pneumothorax. 2. Nonspecific generalized left pulmonary opacities. Considerations include atelectasis/edema and pneumonia. Please correlate with the clinical findings. CHEST 1 VIEW 04/19/2020 9:00 PM INDICATION / CLINICAL INFORMATION: Chest tube insertion. COMPARISON: Radiograph from the same date. FINDINGS: SUPPORT DEVICES: There has been interval placement of a right-sided chest tube which projects over the mid right hemithorax. HEART / MEDIASTINUM: Stable. LUNGS / PLEURA: There has been significant interval reexpansion of the right lung, with residual pneumothorax near the region of the chest tube. The left lung is stable. ADDITIONAL FINDINGS: No significant additional findings. IMPRESSION: 1. Significant interval reexpansion of the right lung with persistent pneumothorax in the region of the chest tube - Medical Decision Making Large spontaneous pneumothorax: I used [place] language line [employer] double needle operator lockstitch per phone to obtain history and provide extensive education regarding patient's plan of treatment. Due to patient's obesity and abnormal chest radiograph, I consulted general surgeon Dr. Wills who readily agreed to perform thoracostom y. I was concerned for potential bleb. Radiologist read the radiograph as atelectasis. However lung collapse appear to be an abnormal appearance. Dr. Wills use 24 [place] thoracostomy tube to treat the pneumothorax. Patient is admitted to remote telemetry. Critical care attestation.: If time is entered above; I have spent that time in minutes in the direct care of this critically ill patient, excluding procedure time. ED Disposition Clinical Impression: Spontaneous pneumothorax, Pneumothorax on right, Dyspnea Disposition: OP ADMIT IP TO THIS HOSP Is pt being admited?: Yes Does the pt Need Aspirin: No Condition: Stable Referrals: PRIMARY CARE,MD [Primary Care Provider] - 3-5 Days
--- NOTE | 2020-04-19 17:55 | XRay Report ---
CHEST 1 VIEW 04/19/2020 4:46 PM INDICATION / CLINICAL INFORMATION: Dyspnea. Pneumothorax on chest x-ray performed at physician's office. COMPARISON: 2 views of the chest from 01/18/2019. FINDINGS: SUPPORT DEVICES: None. HEART / MEDIASTINUM: No significant abnormality. LUNGS / PLEURA: There is a large right pneumothorax with associated atelectasis. Generalized left pul monary opacities are also noted. No significant pleural effusion. ADDITIONAL FINDINGS: No significant additional findings. IMPRESSION: 1. Large right pneumothorax. 2. Nonspecific generalized left pulmonary opacities. Considerations include atelectasis/edema and pne umonia. Please correlate with the clinical findings. Signer Name: Bryan Chan MD Signed: 04/19/2020 5:51 PM Workstation Name: [id number]
[2020-04-19] MEDS ORDERED: LIDOCAINE (1%) 10 MG/1 ML VIAL 20 ML MDV INFILTRATI ONE (18:28)
[2020-04-19 18:59] LABS: Basophils % (Auto) 0.6 % (0.0-1.8); Eosinophils # (Auto) 0.4 K/mm3 (0.0-0.4); Eosinophils % (Auto) 5.7 % (0.0-4.3); Hematocrit 45.8 % (35.5-45.6); Hemoglobin 15.5 gm/dl (11.8-15.2); Lymphocytes # (Auto) 1.3 K/mm3 (1.2-5.4); Lymphocytes % (Auto) 16.3 % (13.4-35.0); Mean Corpuscular HGB Conc 34 % (32-34); Mean Corpuscular Volume 92 fl (84-94); Monocytes # (Auto) 0.7 K/mm3 (0.0-0.8); Monocytes % (Auto) 9.4 % (0.0-7.3); Platelet Count 207 K/mm3 (140-440); Red Blood Count 4.95 M/mm3 (3.65-5.03); Red Cell Distribution Width 13.8 % (13.2-15.2)
[2020-04-19 19:05] LABS: Blood Urea Nitrogen 12 mg/dL (9-20); Calcium 9.1 mg/dL (8.4-10.2); Hemolysis Index 13
[2020-04-19 19:06] LABS: BUN/Creatinine Ratio 17; INR 1.06 (0.87-1.13)
[2020-04-19 19:07] LABS: Partial Thromboplastin Time 34.6 Sec. (24.2-36.6)
[2020-04-19] MEDS ORDERED: MORPHINE 4 MG/1 ML INJ IV ONE (19:41)
--- NOTE | 2020-04-19 19:57 | Consultation ---
History of Present Illness Consult date: 04/19/20 - History of present illness History of present illness: 44 yo male who presents with SOB X 3 days and cough X 3 weeks. Medications and Allergies Allergies Allergy/AdvReac Type Severity Reaction Status Date / Time No Known Allergies Allergy Unverified 01/18/19 13:30 Home Medications Medication Instructions Recorded Confirmed Last Taken Type Azithromycin [Zithromax TAB] 500 mg PO QDAY #7 tablet 01/22/19 Unknown Rx Benzonatate [Tessalon Perles] 200 mg PO Q8HR #15 capsule 01/22/19 Unknown Rx Review of Systems All systems: negative (none) Exam Vital Signs Temp Pulse Resp BP Pulse Ox 98.4 F 99 H 22 120/87 97 04/19/20 17:23 04/19/20 17:23 04/19/20 17:23 04/19/20 17:23 04/19/20 17:23 - General physical appearance Positive: well developed, well nourished, no distress - Eyes Positive: PERRL, normal occular movement - ENT Positive: normal pinna, normal nares, normal mucosa, no hearing loss, no congestion - Neck Positive: no masses, no bruits, trachea midline, no venous distension - Respiratory Positive: normal expansion, normal respiratory effort, other (Decreased breath sounds on the right.) - Cardiovascular Rhythm: regular Heart Sounds: Present: S1 & S2. Absent: rub, click - Extremities Extremities: no ischemia, pulses symmetrical, No edema - Breasts Breasts: normal, no mass, no skin changes - Abdomen Abdomen: Present: soft, bowel sounds normal. Absent: tender, distended Hernia: none - Genitourinary Male Genitourinary: normal Female Genitourinary: normal - Integumentary no rash, no growths, no abnormal pigmentation - Neurologic Neurologic: alert and oriented to time, place and person, motor strength and sensation are grossly intact - Musculoskeletal normal gait, normal posture - Psychiatric Psychiatric: appropriate mood/affect, intact judgment & insight Results - Labs 04/19/20 18:37 04/19/20 18:37 Abnormal lab results 04/19/20 04/19/20 Range/Units 18:37 18:37 Hgb 15.5 H (11.8-15.2) gm/dl Hct 45.8 H (35.5-45.6) % [place] % (Auto) 9.4 H (0.0-7.3) % Eos % (Auto) 5.7 H (0.0-4.3) % Carbon Dioxide 20 L (22-30) mmol/L Creatinine 0.7 L (0.8-1.3) mg/dL Glucose 103 H (75-100) mg/dL Diabetes panel 04/19/20 Range/Units 18:37 Sodium 139 (137-145) mmol/L Potassium 4.2 (3.6-5.0) mmol/L Chloride 105.6 (98-107) mmol/L Carbon Dioxide 20 L (22-30) mmol/L BUN 12 (9-20) mg/dL Creatinine 0.7 L (0.8-1.3) mg/dL Glucose 103 H (75-100) mg/dL Calcium 9.1 (8.4-10.2) mg/dL Calcium panel 04/19/20 Range/Units 18:37 Calcium 9.1 (8.4-10.2) mg/dL Pituitary panel 04/19/20 Range/Units 18:37 Sodium 139 (137-145) mmol/L Potassium 4.2 (3.6-5.0) mmol/L Chloride 105.6 (98-107) mmol/L Carbon Dioxide 20 L (22-30) mmol/L BUN 12 (9-20) mg/dL Creatinine 0.7 L (0.8-1.3) mg/dL Glucose 103 H (75-100) mg/dL Calcium 9.1 (8.4-10.2) mg/dL Adrenal panel 04/19/20 Range/Units 18:37 Sodium 139 (137-145) mmol/L Potassium 4.2 (3.6-5.0) mmol/L Chloride 105.6 (98-107) mmol/L Carbon Dioxide 20 L (22-30) mmol/L BUN 12 (9-20) mg/dL Creatinine 0.7 L (0.8-1.3) mg/dL Glucose 103 H (75-100) mg/dL Calcium 9.1 (8.4-10.2) mg/dL - Imaging Chest x-ray: image reviewed Assessment and Plan - Patient Problems (1) Pneumothorax on right Current Visit: Yes Status: Acute Plan to address problem: 1) Right chest tube insertion 2) Admission for observation 3) F/u CXR in the am
[2020-04-19] MEDS ORDERED: HYDROmorphone 1 MG/1 ML INJ IV ONE (20:00)
--- NOTE | 2020-04-19 20:01 | XRay Report ---
CHEST 1 VIEW INDICATION / CLINICAL INFORMATION: CHEST TUBE. COMPARISON: 04/19/2020 at 1743 hours FINDINGS: SUPPORT DEVICES: Small caliber right pleural drainage tube HEART / MEDIASTINUM: No significant abnormality. LUNGS / PLEURA: No significant pulmonary or pleural abnormality. Moderate-sized right-sided pneumotho rax ADDITIONAL FINDINGS: No significant additional findings. IMPRESSION: A small caliber right pleural drainage tube has been placed and does not extend very far into the tho racic cavity. The right-sided pneumothorax is slightly larger than earlier Signer Name: Antoine Hutchins MD FACR Signed: 04/19/2020 7:57 PM Workstation Name: [id number]
--- NOTE | 2020-04-19 21:02 | Procedure Note ---
Date of procedure: 04/19/20 Pre-op diagnosis: Right pneumothorax Post-op diagnosis: same Procedure: Right chest tube placement (24 [place]an) Description of procedure: Pt was placed supine. Right lateral chest at the level of the nipple was prepped and draped. Skin, SQ tissue and intercostal musculature at the proposed site was infiltrated with 10 ml of 1% Lidocaine. A small incision was made in the anterior axillary line at the level of the nipple. SQ tissue and intercostal musculature was divided with a hemostat and the right thoracic cavity entered. A gush of air was expressed. A 24 canadian chest tube was inserted into the right pleural space. This was secured to the c hest wall with a single suture of 0 silk. Xeroform gauze was placed over the incision followed by dry 4 X 4's. An occlusive silk tape dressing was applied. The chest tube was connected to the Pleur-evac and an upright portable CXR obtained. This revealed significant evacuation of the PTX and the CT to be in good position. Procedure was well tolerated by the pt. Anesthesia: local (+ IV morphine and dilaudid) Surgeon: ALON LEY Estimated blood loss: minimal Pathology: none Condition: stable Disposition: no change (Post CT CXR revealed good tube position and significant improvement of PTX.)
--- NOTE | 2020-04-19 21:17 | XRay Report ---
CHEST 1 VIEW 04/19/2020 9:00 PM INDICATION / CLINICAL INFORMATION: Chest tube insertion. COMPARISON: Radiograph from the same date. FINDINGS: SUPPORT DEVICES: There has been interval placement of a right-sided chest tube which projects over th e mid right hemithorax. HEART / MEDIASTINUM: Stable. LUNGS / PLEURA: There has been significant interval reexpansion of the right lung, with residual pneu mothorax near the region of the chest tube. The left lung is stable. ADDITIONAL FINDINGS: No significant additional findings. IMPRESSION: 1. Significant interval reexpansion of the right lung with persistent pneumothorax in the region of t he chest tube. Signer Name: Long Hutchins MD Signed: 04/19/2020 9:13 PM Workstation Name: [id number]
[2020-04-19] MEDS ORDERED: ACETAMINOPHEN 325 MG TAB PO PRN (21:23)
[2020-04-19] MEDS ORDERED: ALBUTEROL 2.5 MG/3 ML NEBU IH PRN (21:24)
--- NOTE | 2020-04-19 21:29 | History and Physical Report ---
History of Present Illness Date of examination: 04/19/20 Chief complaint: Shortness of breath Respiratory distress History of present illness: 44-year-old male with history of smoking was brought to emergency department for shortness of breath since Wednesday. He has had cough for the past 3 weeks. He assumed that he had COVID-19 infection. Patient was diagnosed with pneumothorax right-sided outpatient chest radiograph today by PCP. sequently patient was transported to the emergency room from PCPs office patient denies pain. He denies fever. He denies loss of taste or smell. Denies abdominal pain or diarrhea. He stopped smoking tobacco 1 year ago. He lives with his and 6 children. In the emergency room patient is found to have large right-sided pneumothorax. Patient is status post chest tube placement by the surgery Past History Past Medical History: denies: COPD Medications and Allergies Allergies Allergy/AdvReac Type Severity Reaction Status Date / Time No Known Allergies Allergy Unverified 01/18/19 13:30 Home Medications Medication Instructions Recorded Confirmed Last Taken Type Azithromycin [Zithromax TAB] 500 mg PO QDAY #7 tablet 01/22/19 Unknown Rx Benzonatate [Tessalon Perles] 200 mg PO Q8HR #15 capsule 01/22/19 Unknown Rx Active Meds: Active Medications Ceftriaxone Sodium (Rocephin/Ns 2 Gm/100 Ml) 2 gm in 100 mls @ 200 mls/hr IV Q24H ANCELMO; Protocol Azithromycin (Zithromax/Ns) 500 mg in 250 mls @ 250 mls/hr IV Q24H ANCELMO; Protocol Review of Systems Cardiovascular: shortness of breath Respiratory: cough, shortness of breath, dyspnea on exertion Exam - Constitutional Vitals: Temp Pulse Resp BP Pulse Ox 98.4 F 99 H 18 120/87 97 04/19/20 17:23 04/19/20 17:23 04/19/20 18:05 04/19/20 17:23 04/19/20 18:05 General appearance: Present: mild distress, well-nourished. Absent: no acute distress - EENT Eyes: Present: PERRL ENT: hearing intact, clear oral mucosa - Neck Neck: Present: supple, normal ROM - Respiratory Respiratory effort: normal Respiratory: bilateral: diminished - Cardiovascular Heart Sounds: Present: S1 & S2. Absent: rub, click - Extremities Extremities: pulses symmetrical, No edema Peripheral Pulses: within normal limits - Abdominal General gastrointestinal: Present: soft, non-tender, non-distended, normal bowel sounds Male genitourinary: Present: normal - Integumentary Integumentary: Present: clear, warm, dry - Musculoskeletal Musculoskeletal: gait normal, strength equal bilaterally - Psychiatric Psychiatric: appropriate mood/affect, intact judgment & insight - Neurologic Neurologic: CNII-XII intact, moves all extremities Results - Labs CBC & Chem 7: 04/19/20 18:37 04/19/20 18:37 Labs: Laboratory Last Values WBC 7.7 K/mm3 (4.5-11.0) 04/19/20 18:37 RBC 4.95 M/mm3 (3.65-5.03) 04/19/20 18:37 Hgb 15.5 gm/dl (11.8-15.2) H 04/19/20 18:37 Hct 45.8 % (35.5-45.6) H 04/19/20 18:37 MCV 92 fl (84-94) 04/19/20 18:37 MCH 31 pg (28-32) 04/19/20 18:37 MCHC 34 % (32-34) 04/19/20 18:37 RDW 13.8 % (13.2-15.2) 04/19/20 18:37 Plt Count 207 K/mm3 (140-440) 04/19/20 18:37 Lymph % (Auto) 16.3 % (13.4-35.0) 04/19/20 18:37 [place] % (Auto) 9.4 % (0.0-7.3) H 04/19/20 18:37 Eos % (Auto) 5.7 % (0.0-4.3) H 04/19/20 18:37 Baso % (Auto) 0.6 % (0.0-1.8) 04/19/20 18:37 Lymph # (Auto) 1.3 K/mm3 (1.2-5.4) 04/19/20 18:37 [place] # (Auto) 0.7 K/mm3 (0.0-0.8) 04/19/20 18:37 Eos # (Auto) 0.4 K/mm3 (0.0-0.4) 04/19/20 18:37 Baso # (Auto) 0.0 K/mm3 (0.0-0.1) 04/19/20 18:37 Seg Neutrophils % 68.0 % (40.0-70.0) 04/19/20 18:37 Seg Neutrophils # 5.2 K/mm3 (1.8-7.7) 04/19/20 18:37 PT 13.6 Sec. (12.2-14.9) 04/19/20 18:37 INR 1.06 (0.87-1.13) 04/19/20 18:37 APTT 34.6 Sec. (24.2-36.6) 04/19/20 18:37 Sodium 139 mmol/L (137-145) 04/19/20 18:37 Potassium 4.2 mmol/L (3.6-5.0) 04/19/20 18:37 Chloride 105.6 mmol/L (98-107) 04/19/20 18:37 Carbon Dioxide 20 mmol/L (22-30) L 04/19/20 18:37 Anion Gap 18 mmol/L 04/19/20 18:37 BUN 12 mg/dL (9-20) 04/19/20 18:37 Creatinine 0.7 mg/dL (0.8-1.3) L 04/19/20 18:37 Estimated GFR > 60 ml/min 04/19/20 18:37 BUN/Creatinine Ratio 17 % 04/19/20 18:37 Glucose 103 mg/dL (75-100) H 04/19/20 18:37 Calcium 9.1 mg/dL (8.4-10.2) 04/19/20 18:37 - Imaging and Cardiology Chest x-ray: image reviewed Gilbert/IV: IV Catheter Type [Right INT / Saline Lock Forearm] Assessment and Plan - Patient Problems (1) Dyspnea Current Visit: Yes Status: Acute Plan to address problem: Oxygen by nasal cannula 3 L/min. DuoNeb by nebulizer every 4 hours as needed. Patient is status post chest tube placement by the surgery. Rocephin 1 g IV daily and Zithromax 500 mg daily. Due to the blood cultures sputum culture. We consulted general surgery for further evaluation and treatment. (2) Pneumothorax on right Current Visit: Yes Status: Acute Plan to address problem: Admit the patient to the medical telemetry. Put the patient on cardiac diet. Oxygen by nasal cannula 3 L/min. DuoNeb by nebulizer every 4 hours as needed. Patient is status post chest tube placement by the surgery. Rocephin 1 g IV daily and Zithromax 500 mg daily. Due to the blood cultures sputum culture. We consulted general surgery for further evaluation and treatment. Heparin 5000 units subcu every 8 hours for DVT prophylaxis and Pepcid 20 mg p.o. twice daily for GI prophylaxis (3) Pneumonia Current Visit: Yes Status: Acute Plan to address problem: Oxygen by nasal cannula 3 L/min. DuoNeb by nebulizer every 4 hours as needed. Patient is status post chest tube placement by the surgery. Rocephin 1 g IV daily and Zithromax 500 mg daily. Due to the blood cultures sputum culture. Recheck CBC BMP in the morning
[2020-04-19] MEDS: cefTRIAXone/NS 2 GM/100 ML 2 GM/100 ML BAG IV SCH (22:11)
[2020-04-19] MEDS ORDERED: ONDANSETRON 4 MG/2 ML INJ ONE (22:16)
[2020-04-19] MEDS ORDERED: ONDANSETRON 4 MG/2 ML INJ IV ONE (23:25)
[2020-04-20] MEDS: AZITHROMYCIN/NS 500 MG/250 ML 500 MG/250 ML BAG IV SCH ×2 (00:47→21:34)
[2020-04-20] MEDS: FAMOTIDINE 20 MG TAB PO SCH ×3 (00:48→21:33)
[2020-04-20] MEDS: HEPARIN 5,000 UNIT/1 ML VIAL SUB-Q SCH ×4 (00:48→21:33)
[2020-04-20 06:05] LABS: Basophils # (Auto) 0.1 K/mm3 (0.0-0.1); Basophils % (Auto) 0.7 % (0.0-1.8); Eosinophils # (Auto) 0.5 K/mm3 (0.0-0.4); Eosinophils % (Auto) 7.2 % (0.0-4.3); Hematocrit 43.4 % (35.5-45.6); Hemoglobin 14.4 gm/dl (11.8-15.2); Lymphocytes # (Auto) 1.7 K/mm3 (1.2-5.4); Lymphocytes % (Auto) 23.8 % (13.4-35.0); Mean Corpuscular HGB Conc 33 % (32-34); Mean Corpuscular Volume 93 fl (84-94); Monocytes # (Auto) 0.7 K/mm3 (0.0-0.8); Monocytes % (Auto) 9.1 % (0.0-7.3); Platelet Count 220 K/mm3 (140-440); Red Blood Count 4.68 M/mm3 (3.65-5.03); Red Cell Distribution Width 13.9 % (13.2-15.2)
[2020-04-20 06:20] LABS: Blood Urea Nitrogen 12 mg/dL (9-20); Calcium 9.1 mg/dL (8.4-10.2); Hemolysis Index 5
[2020-04-20 06:25] LABS: BUN/Creatinine Ratio 17
--- NOTE | 2020-04-20 07:44 | Progress Note ---
Assessment and Plan Assessment and plan: (1) Dyspnea Current Visit: Yes Status: Acute Plan to address problem: Oxygen by nasal cannula 3 L/min. DuoNeb by nebulizer every 4 hours as needed. Patient is status post chest tube placement by the surgery. Rocephin 1 g IV daily and Zithromax 500 mg daily. Due to the blood cultures sputum culture. We consulted general surgery for further evaluation and treatment. (2) Pneumothorax on right Current Visit: Yes Status: Acute Plan to address problem: Admit the patient to the medical telemetry. Put the patient on cardiac diet. Oxygen by nasal cannula 3 L/min. DuoNeb by nebulizer every 4 hours as needed. Patient is status post chest tube placement by the surgery. Rocephin 1 g IV daily and Zithromax 500 mg daily. Due to the blood cultures sputum culture. We consulted general surgery for further evaluation and treatment. Heparin 5000 units subcu every 8 hours for DVT prophylaxis and Pepcid 20 mg p.o. twice daily for GI prophylaxis (3) Pneumonia Current Visit: Yes Status: Acute Plan to address problem: Oxygen by nasal cannula 3 L/min. DuoNeb by nebulizer every 4 hours as needed. Patient is status post chest tube placement by the surgery. Rocephin 1 g IV daily and Zithromax 500 mg daily. Due to the blood cultures sputum culture. Recheck CBC BMP in the morning 04/20/2020 -Status post chest tube placement, repeat chest x-ray showed reexpansion. We will do chest x-ray today. General surgery consult appreciated. Pulmonary consulted -Patient is on IV antibiotics for pneumonia Disposition; per general surgery recommendation. History Interval history: Patient admitted for large right pneumothorax and left-sided pneumonia Status post chest tube placement Patient denied chest pain or shortness of breath. Patient is on 3 L oxygen of oxygen and saturating 100% Hospitalist Physical - Physical exam Narrative exam: Not in cardiopulmonary distress. The patient appeared well nourished and normally developed. Vital signs as documented. Head exam is unremarkable. No scleral icterus . Neck is without jugular venous distension, thyromegaly, or carotid bruits. Lungs right-sided chest tube in place Cardiac exam reveals regular rate and Rhythm. Abdominal exam reveals normal bowel sounds, nontender, no organomegaly. Extremities are nonedematous and both femoral and pedal pulses are normal. COMIC BOOK WRITER: Alert and oriented 3. No focal weakness. - Constitutional Vitals: Temp Pulse Resp BP Pulse Ox 97.9 F 78 20 120/82 98 04/20/20 04:49 04/20/20 04:49 04/20/20 04:49 04/20/20 04:49 04/20/20 04:49 General appearance: Present: mild distress, well-nourished. Absent: no acute distress Results - Labs CBC & Chem 7: 04/20/20 05:40 04/20/20 05:40 Labs: Laboratory Last Values WBC 7.2 K/mm3 (4.5-11.0) 04/20/20 05:40 RBC 4.68 M/mm3 (3.65-5.03) 04/20/20 05:40 Hgb 14.4 gm/dl (11.8-15.2) 04/20/20 05:40 Hct 43.4 % (35.5-45.6) 04/20/20 05:40 MCV 93 fl (84-94) 04/20/20 05:40 MCH 31 pg (28-32) 04/20/20 05:40 MCHC 33 % (32-34) 04/20/20 05:40 RDW 13.9 % (13.2-15.2) 04/20/20 05:40 Plt Count 220 K/mm3 (140-440) 04/20/20 05:40 Lymph % (Auto) 23.8 % (13.4-35.0) 04/20/20 05:40 [place] % (Auto) 9.1 % (0.0-7.3) H 04/20/20 05:40 Eos % (Auto) 7.2 % (0.0-4.3) H 04/20/20 05:40 Baso % (Auto) 0.7 % (0.0-1.8) 04/20/20 05:40 Lymph # (Auto) 1.7 K/mm3 (1.2-5.4) 04/20/20 05:40 [place] # (Auto) 0.7 K/mm3 (0.0-0.8) 04/20/20 05:40 Eos # (Auto) 0.5 K/mm3 (0.0-0.4) H 04/20/20 05:40 Baso # (Auto) 0.1 K/mm3 (0.0-0.1) 04/20/20 05:40 Seg Neutrophils % 59.2 % (40.0-70.0) 04/20/20 05:40 Seg Neutrophils # 4.2 K/mm3 (1.8-7.7) 04/20/20 05:40 PT 13.6 Sec. (12.2-14.9) 04/19/20 18:37 INR 1.06 (0.87-1.13) 04/19/20 18:37 APTT 34.6 Sec. (24.2-36.6) 04/19/20 18:37 Sodium 140 mmol/L (137-145) 04/20/20 05:40 Potassium 4.7 mmol/L (3.6-5.0) 04/20/20 05:40 Chloride 105.2 mmol/L (98-107) 04/20/20 05:40 Carbon Dioxide 26 mmol/L (22-30) 04/20/20 05:40 Anion Gap 14 mmol/L 04/20/20 05:40 BUN 12 mg/dL (9-20) 04/20/20 05:40 Creatinine 0.7 mg/dL (0.8-1.3) L 04/20/20 05:40 Estimated GFR > 60 ml/min 04/20/20 05:40 BUN/Creatinine Ratio 17 % 04/20/20 05:40 Glucose 115 mg/dL (75-100) H 04/20/20 05:40 Calcium 9.1 mg/dL (8.4-10.2) 04/20/20 05:40 Gilbert/IV: IV Catheter Type [Right INT / Saline Lock Forearm] Active Medications - Current Medications Current Medications: Generic Name Dose Route Start Last Admin Trade Name Freq PRN Reason Stop Dose Admin Acetaminophen 650 mg 04/19/20 21:23 Acetaminophen 325 Mg Tab PO Q6H PRN Pain, Mild (1-3) Albuterol 2.5 mg 04/19/20 21:24 Albuterol 2.5 Mg/3 Ml Nebu IH Q4HRT PRN Shortness Of Breath Famotidine 20 mg 04/19/20 22:00 04/20/20 00:48 Famotidine 20 Mg Tab PO 20 mg BID ANCELMO Administration Heparin Sodium (Porcine) 5,000 unit 04/19/20 22:00 04/20/20 05:43 Heparin 5,000 Unit/1 Ml Vial SUB-Q 5,000 unit Q8HR ANCELMO Administration Ceftriaxone Sodium 2 gm in 100 mls @ 200 mls/hr 04/19/20 22:00 04/19/20 22:11 Rocephin/Ns 2 Gm/100 Ml IV 200 mls/hr Q24H ANCELMO Administration Protocol Azithromycin 500 mg in 250 mls @ 250 mls/hr 04/19/20 22:00 04/20/20 00:47 Zithromax/Ns IV 250 mls/hr Q24H ANCELMO Administration Protocol
--- NOTE | 2020-04-20 08:16 | XRay Report ---
CHEST 1 VIEW INDICATION / CLINICAL INFORMATION: Follow-up of pneumothorax status post chest tube. COMPARISON: 04/19/2020 FINDINGS: SUPPORT DEVICES: Right pleural drainage tube HEART / MEDIASTINUM: No significant abnormality. LUNGS / PLEURA: Bilateral airspace disease Minimal right-sided pneumothorax ADDITIONAL FINDINGS: No significant additional findings. IMPRESSION: Minimal right-sided pneumothorax is present. Airspace disease bilaterally is unchanged Signer Name: Antoine Hutchins MD FACR Signed: 04/20/2020 8:12 AM Workstation Name: [id number]
--- NOTE | 2020-04-20 11:23 | Progress Note ---
Assessment and Plan - Patient Problems (1) Pneumothorax on right Current Visit: Yes Status: Acute Plan to address problem: 1) CT to water seal 2) CXR in the am Subjective Date of service: 04/20/20 Patient Reports: Positive: no new complaints Objective Vital Signs - 12hr 04/19/20 04/19/20 04/19/20 23:47 23:48 23:56 Temperature 98.2 F Pulse Rate 92 H 89 Pulse Rate [ Left Radial] Pulse Rate [ Right Radial] Respiratory 22 20 Rate Blood Pressure 117/85 O2 Sat by Pulse 99 Oximetry 04/20/20 04/20/20 04/20/20 04:49 09:00 10:00 Temperature 97.9 F Pulse Rate 78 77 Pulse Rate [ 78 Left Radial] Pulse Rate [ 78 Right Radial] Respiratory 20 22 Rate Blood Pressure 120/82 119/82 O2 Sat by Pulse 98 98 Oximetry - General physical appearance well developed, well nourished, no distress, severe distress - Eyes PERRL, normal occular movement - ENT normal pinna, normal nares, normal mucosa, no hearing loss, no congestion - Neck no masses, no bruits, trachea midline, no lymphadectomy, no venous distension - Respiratory normal expansion, normal respiratory effort, clear to percussion, clear to auscultation - Abdomen [id number] 4, [id number] 6, [id number] 8 Hernia: none - Genitourinary normal penis, testicles present, testicles non-tender - Rectum normal spincter tone, no hemorrhoids, no tenderness, no masses, no bleeding - Integumentary no rash, no growths, no abnormal pigmentation - Neurologic normal coordination, normal sensation - Musculoskeletal normal gait, normal posture - Psychiatric oriented to time, oriented to person, oriented to place, speech is normal, memory intact - Labs 04/20/20 05:40 04/20/20 05:40 Diabetes panel 04/19/20 04/20/20 Range/Units 18:37 05:40 Sodium 139 140 (137-145) mmol/L Potassium 4.2 4.7 (3.6-5.0) mmol/L Chloride 105.6 105.2 (98-107) mmol/L Carbon Dioxide 20 L 26 (22-30) mmol/L BUN 12 12 (9-20) mg/dL Creatinine 0.7 L 0.7 L (0.8-1.3) mg/dL Glucose 103 H 115 H (75-100) mg/dL Calcium 9.1 9.1 (8.4-10.2) mg/dL Calcium panel 04/19/20 04/20/20 Range/Units 18:37 05:40 Calcium 9.1 9.1 (8.4-10.2) mg/dL Pituitary panel 04/19/20 04/20/20 Range/Units 18:37 05:40 Sodium 139 140 (137-145) mmol/L Potassium 4.2 4.7 (3.6-5.0) mmol/L Chloride 105.6 105.2 (98-107) mmol/L Carbon Dioxide 20 L 26 (22-30) mmol/L BUN 12 12 (9-20) mg/dL Creatinine 0.7 L 0.7 L (0.8-1.3) mg/dL Glucose 103 H 115 H (75-100) mg/dL Calcium 9.1 9.1 (8.4-10.2) mg/dL Adrenal panel 04/19/20 04/20/20 Range/Units 18:37 05:40 Sodium 139 140 (137-145) mmol/L Potassium 4.2 4.7 (3.6-5.0) mmol/L Chloride 105.6 105.2 (98-107) mmol/L Carbon Dioxide 20 L 26 (22-30) mmol/L BUN 12 12 (9-20) mg/dL Creatinine 0.7 L 0.7 L (0.8-1.3) mg/dL Glucose 103 H 115 H (75-100) mg/dL Calcium 9.1 9.1 (8.4-10.2) mg/dL - Imaging Additional Studies: Today's CXR was reviewed.
--- NOTE | 2020-04-20 11:53 | XRay Report ---
CHEST 1 VIEW INDICATION / CLINICAL INFORMATION: PTX. COMPARISON: 04/20/2020 at 0801 hours FINDINGS: SUPPORT DEVICES: Right pleural drainage tube HEART / MEDIASTINUM: No significant abnormality. LUNGS / PLEURA: Diffuse bilateral airspace disease No pneumothorax. ADDITIONAL FINDINGS: No significant additional findings. IMPRESSION: No change in the appearance of the chest from earlier today. Bilateral airspace disease is unchanged. Small right-sided pneumothorax is also unchanged Signer Name: Antoine Hutchins MD FACR Signed: 04/20/2020 11:48 AM Workstation Name: [id number]
[2020-04-20] MEDS: cefTRIAXone/NS 2 GM/100 ML 2 GM/100 ML BAG IV SCH (21:36)
[2020-04-21] MEDS: HEPARIN 5,000 UNIT/1 ML VIAL SUB-Q SCH ×3 (06:00→22:09)
--- NOTE | 2020-04-21 08:26 | Progress Note ---
Assessment and Plan Assessment and plan: (1) Dyspnea Current Visit: Yes Status: Acute Plan to address problem: Oxygen by nasal cannula 3 L/min. DuoNeb by nebulizer every 4 hours as needed. Patient is status post chest tube placement by the surgery. Rocephin 1 g IV daily and Zithromax 500 mg daily. Due to the blood cultures sputum culture. We consulted general surgery for further evaluation and treatment. (2) Pneumothorax on right Current Visit: Yes Status: Acute Plan to address problem: Admit the patient to the medical telemetry. Put the patient on cardiac diet. Oxygen by nasal cannula 3 L/min. DuoNeb by nebulizer every 4 hours as needed. Patient is status post chest tube placement by the surgery. Rocephin 1 g IV daily and Zithromax 500 mg daily. Due to the blood cultures sputum culture. We consulted general surgery for further evaluation and treatment. Heparin 5000 units subcu every 8 hours for DVT prophylaxis and Pepcid 20 mg p.o. twice daily for GI prophylaxis (3) Pneumonia Current Visit: Yes Status: Acute Plan to address problem: Oxygen by nasal cannula 3 L/min. DuoNeb by nebulizer every 4 hours as needed. Patient is status post chest tube placement by the surgery. Rocephin 1 g IV daily and Zithromax 500 mg daily. Due to the blood cultures sputum culture. Recheck CBC BMP in the morning 04/20/2020 -Status post chest tube placement, repeat chest x-ray showed reexpansion. We will do chest x-ray today. General surgery consult appreciated. Pulmonary consulted -Patient is on IV antibiotics for pneumonia Disposition; per general surgery recommendation. 04/21/2020 -Pneumothorax status post chest tube in place. Cussed with general surgery Dr. Wills and he will do chest x-ray today and will decide if he is able to take out the chest tube. -Chest x-ray from yesterday showed small pneumothorax and unchanged bilateral airspace disease Disposition; will follow general surgery recommendation History Interval history: Patient admitted for large right pneumothorax and left-sided pneumonia Status post chest tube placement Patient denied chest pain or shortness of breath. Patient is on 3 L oxygen of oxygen and saturating 100% Hospitalist Physical - Physical exam Narrative exam: Not in cardiopulmonary distress. The patient appeared well nourished and normally developed. Vital signs as documented. Head exam is unremarkable. No scleral icterus . Neck is without jugular venous distension, thyromegaly, or carotid bruits. Lungs right-sided chest tube in place Cardiac exam reveals regular rate and Rhythm. Abdominal exam reveals normal bowel sounds, nontender, no organomegaly. Extremities are nonedematous and both femoral and pedal pulses are normal. RESIDENCE SUPERVISOR: Alert and oriented 3. No focal weakness. - Constitutional Vitals: Temp Pulse Resp BP Pulse Ox 98.4 F 66 18 110/72 99 04/21/20 05:00 04/21/20 05:00 04/21/20 05:00 04/21/20 05:00 04/21/20 05:00 General appearance: Present: mild distress, well-nourished. Absent: no acute distress Results - Labs CBC & Chem 7: 04/20/20 05:40 04/20/20 05:40 Labs: Laboratory Last Values WBC 7.2 K/mm3 (4.5-11.0) 04/20/20 05:40 RBC 4.68 M/mm3 (3.65-5.03) 04/20/20 05:40 Hgb 14.4 gm/dl (11.8-15.2) 04/20/20 05:40 Hct 43.4 % (35.5-45.6) 04/20/20 05:40 MCV 93 fl (84-94) 04/20/20 05:40 MCH 31 pg (28-32) 04/20/20 05:40 MCHC 33 % (32-34) 04/20/20 05:40 RDW 13.9 % (13.2-15.2) 04/20/20 05:40 Plt Count 220 K/mm3 (140-440) 04/20/20 05:40 Lymph % (Auto) 23.8 % (13.4-35.0) 04/20/20 05:40 Cassia % (Auto) 9.1 % (0.0-7.3) H 04/20/20 05:40 Eos % (Auto) 7.2 % (0.0-4.3) H 04/20/20 05:40 Baso % (Auto) 0.7 % (0.0-1.8) 04/20/20 05:40 Lymph # (Auto) 1.7 K/mm3 (1.2-5.4) 04/20/20 05:40 Cassia # (Auto) 0.7 K/mm3 (0.0-0.8) 04/20/20 05:40 Eos # (Auto) 0.5 K/mm3 (0.0-0.4) H 04/20/20 05:40 Baso # (Auto) 0.1 K/mm3 (0.0-0.1) 04/20/20 05:40 Seg Neutrophils % 59.2 % (40.0-70.0) 04/20/20 05:40 Seg Neutrophils # 4.2 K/mm3 (1.8-7.7) 04/20/20 05:40 PT 13.6 Sec. (12.2-14.9) 04/19/20 18:37 INR 1.06 (0.87-1.13) 04/19/20 18:37 APTT 34.6 Sec. (24.2-36.6) 04/19/20 18:37 Sodium 140 mmol/L (137-145) 04/20/20 05:40 Potassium 4.7 mmol/L (3.6-5.0) 04/20/20 05:40 Chloride 105.2 mmol/L (98-107) 04/20/20 05:40 Carbon Dioxide 26 mmol/L (22-30) 04/20/20 05:40 Anion Gap 14 mmol/L 04/20/20 05:40 BUN 12 mg/dL (9-20) 04/20/20 05:40 Creatinine 0.7 mg/dL (0.8-1.3) L 04/20/20 05:40 Estimated GFR > 60 ml/min 04/20/20 05:40 BUN/Creatinine Ratio 17 % 04/20/20 05:40 Glucose 115 mg/dL (75-100) H 04/20/20 05:40 Calcium 9.1 mg/dL (8.4-10.2) 04/20/20 05:40 Gilbert/IV: Voiding Method Urinal IV Catheter Type [Right INT / Saline Lock Forearm] Active Medications - Current Medications Current Medications: Generic Name Dose Route Start Last Admin Trade Name Freq PRN Reason Stop Dose Admin Acetaminophen 650 mg 04/19/20 21:23 Acetaminophen 325 Mg Tab PO Q6H PRN Pain, Mild (1-3) Albuterol 2.5 mg 04/19/20 21:24 Albuterol 2.5 Mg/3 Ml Nebu IH Q4HRT PRN Shortness Of Breath Famotidine 20 mg 04/19/20 22:00 04/20/20 21:33 Famotidine 20 Mg Tab PO 20 mg BID ANCELMO Administration Heparin Sodium (Porcine) 5,000 unit 04/19/20 22:00 04/21/20 06:00 Heparin 5,000 Unit/1 Ml Vial SUB-Q 5,000 unit Q8HR ANCELMO Administration Ceftriaxone Sodium 2 gm in 100 mls @ 200 mls/hr 04/19/20 22:00 04/20/20 21:36 Rocephin/Ns 2 Gm/100 Ml IV 200 mls/hr Q24H ANCELMO Administration Protocol Azithromycin 500 mg in 250 mls @ 250 mls/hr 04/19/20 22:00 04/20/20 21:34 Zithromax/Ns IV 250 mls/hr Q24H ANCELMO Administration Protocol
[2020-04-21] MEDS: FAMOTIDINE 20 MG TAB PO SCH ×2 (09:09→22:09)
--- NOTE | 2020-04-21 09:39 | XRay Report ---
CHEST 1 VIEW 04/21/2020 8:28 AM INDICATION / CLINICAL INFORMATION: Follow-up of pneumothorax. COMPARISON: 04/20/2020. FINDINGS: SUPPORT DEVICES: Unchanged. HEART / MEDIASTINUM: Stable. LUNGS / PLEURA: Patchy bilateral airspace opacities are unchanged. No pneumothorax. ADDITIONAL FINDINGS: No significant additional findings. IMPRESSION: 1. No significant change. Signer Name: Long Hutchins MD Signed: 04/21/2020 9:34 AM Workstation Name: [id number]
--- NOTE | 2020-04-21 12:35 | Event Note ---
Date: 04/21/20 Surgery is managing chest tube. Follow up recs from them. SUggest continued oxygen therapy until chest tube is removed. If further pulmonary iss ues/questions persist, please dont hesitate to call.
--- NOTE | 2020-04-21 17:17 | Progress Note ---
Assessment and Plan - Patient Problems (1) Pneumothorax on right Current Visit: Yes Status: Acute (2) Spontaneous pneumothorax Current Visit: Yes Status: Acute Plan to address problem: 1) CXR in the am. If this is okay, pt can be discharged. Subjective Date of service: 04/21/20 Patient Reports: Positive: no new complaints Objective Vital Signs - 12hr 04/21/20 04/21/20 04/21/20 08:31 10:00 10:54 Temperature 98.1 F Pulse Rate 69 69 Respiratory 18 Rate Blood Pressure 106/64 O2 Sat by Pulse 98 100 Oximetry 04/21/20 04/21/20 04/21/20 10:55 11:27 15:44 Temperature 98.5 F 98.1 F Pulse Rate 64 64 Respiratory 20 18 18 Rate Blood Pressure 110/70 100/64 O2 Sat by Pulse 99 100 Oximetry - Respiratory normal expansion, normal respiratory effort, clear to auscultation - Labs 04/20/20 05:40 04/20/20 05:40 - Imaging Additional Studies: CXR's both pre and post CT removal reviewed. Post CT removal CXR reveals no PT X.
--- NOTE | 2020-04-21 17:33 | XRay Report ---
CHEST 1 VIEW INDICATION / CLINICAL INFORMATION: PTX. COMPARISON: 04/21/2020 at 0917 hours FINDINGS: SUPPORT DEVICES: None. HEART / MEDIASTINUM: No significant abnormality. LUNGS / PLEURA: Bilateral airspace disease, air-containing space in the right lower lung No pneumotho rax. ADDITIONAL FINDINGS: No significant additional findings. IMPRESSION: Air-containing space in the right lower lung is unchanged from earlier today. It is unclear whether t his represents a small loculated pneumothorax or chronic lung disease. Bilateral airspace disease is unchanged Signer Name: Antoine Hutchins MD FACR Signed: 04/21/2020 5:29 PM Workstation Name: [email or web address]
[2020-04-21] MEDS: AZITHROMYCIN/NS 500 MG/250 ML 500 MG/250 ML BAG IV SCH (22:11)
[2020-04-21] MEDS: cefTRIAXone/NS 2 GM/100 ML 2 GM/100 ML BAG IV SCH (22:26)
[2020-04-22] MEDS: HEPARIN 5,000 UNIT/1 ML VIAL SUB-Q SCH ×2 (05:53→13:21)
[2020-04-22 05:56] LABS: Basophils % (Auto) 0.8 % (0.0-1.8); Eosinophils # (Auto) 0.5 K/mm3 (0.0-0.4); Eosinophils % (Auto) 9.2 % (0.0-4.3); Lymphocytes # (Auto) 1.8 K/mm3 (1.2-5.4); Lymphocytes % (Auto) 30.7 % (13.4-35.0); Mean Corpuscular HGB Conc 34 % (32-34); Mean Corpuscular Volume 93 fl (84-94); Monocytes # (Auto) 0.6 K/mm3 (0.0-0.8); Monocytes % (Auto) 10.9 % (0.0-7.3); Platelet Count 214 K/mm3 (140-440); Red Blood Count 4.43 M/mm3 (3.65-5.03); Red Cell Distribution Width 13.8 % (13.2-15.2)
[2020-04-22 06:12] LABS: Blood Urea Nitrogen 7 mg/dL (9-20); Calcium 8.8 mg/dL (8.4-10.2); Hemolysis Index 8
[2020-04-22 06:22] LABS: BUN/Creatinine Ratio 12
--- NOTE | 2020-04-22 08:06 | XRay Report ---
CHEST 1 VIEW 04/22/2020 7:31 AM INDICATION / CLINICAL INFORMATION: PTX. COMPARISON: Previous day. FINDINGS: SUPPORT DEVICES: None. HEART / MEDIASTINUM: No significant abnormality. LUNGS / PLEURA: Lung volumes remain diminished with slight improvement. Patchy bilateral opacity nickolas ins. No pleural fluid. ADDITIONAL FINDINGS: No significant additional findings. IMPRESSION: Slight improvement in aeration. Signer Name: Alferd Dumont MD Signed: 04/22/2020 8:01 AM Workstation Name: [email or web address]
[2020-04-22] MEDS: FAMOTIDINE 20 MG TAB PO SCH (09:17)
[2020-04-22 11:56] VITALS: BP 119/73
--- NOTE | 2020-04-22 13:51 | Progress Note ---
Assessment and Plan - Patient Problems (1) Pneumothorax on right Current Visit: Yes Status: Acute Plan to address problem: 1) Pt can be discharged home. 2) F/u in my office in 2 weeks 3) No airplane travel for 6 weeks 4) Leave right chest dressing in place for an additional 72 hours. (2) Spontaneous pneumothorax Current Visit: Yes Status: Acute Subjective Date of service: 04/22/20 Patient Reports: Positive: no new complaints Objective Vital Signs - 12hr 04/22/20 04/22/20 04/22/20 02:00 06:02 07:30 Temperature 98.3 F 98.2 F Pulse Rate 65 70 68 Pulse Rate [ Left Radial] Pulse Rate [ Right Radial] Respiratory 18 21 Rate Blood Pressure 125/79 Blood Pressure 118/78 [Right] O2 Sat by Pulse 99 99 Oximetry 04/22/20 04/22/20 04/22/20 09:06 10:00 11:50 Temperature Pulse Rate 68 64 75 Pulse Rate [ 72 Left Radial] Pulse Rate [ 72 Right Radial] Respiratory 21 Rate Blood Pressure 118/78 119/73 Blood Pressure [Right] O2 Sat by Pulse 97 99 94 Oximetry 04/22/20 04/22/20 11:56 12:14 Temperature 98.7 F Pulse Rate 75 Pulse Rate [ Left Radial] Pulse Rate [ Right Radial] Respiratory 18 Rate Blood Pressure Blood Pressure 119/73 [Right] O2 Sat by Pulse 100 100 Oximetry - Respiratory normal expansion, normal respiratory effort, clear to percussion, clear to auscultation - Labs 04/22/20 05:32 04/22/20 05:32 Diabetes panel 04/22/20 Range/Units 05:32 Sodium 141 (137-145) mmol/L Potassium 3.9 (3.6-5.0) mmol/L Chloride 105.9 (98-107) mmol/L Carbon Dioxide 26 (22-30) mmol/L BUN 7 L (9-20) mg/dL Creatinine 0.6 L (0.8-1.3) mg/dL Glucose 86 (75-100) mg/dL Calcium 8.8 (8.4-10.2) mg/dL Calcium panel 04/22/20 Range/Units 05:32 Calcium 8.8 (8.4-10.2) mg/dL Pituitary panel 04/22/20 Range/Units 05:32 Sodium 141 (137-145) mmol/L Potassium 3.9 (3.6-5.0) mmol/L Chloride 105.9 (98-107) mmol/L Carbon Dioxide 26 (22-30) mmol/L BUN 7 L (9-20) mg/dL Creatinine 0.6 L (0.8-1.3) mg/dL Glucose 86 (75-100) mg/dL Calcium 8.8 (8.4-10.2) mg/dL Adrenal panel 04/22/20 Range/Units 05:32 Sodium 141 (137-145) mmol/L Potassium 3.9 (3.6-5.0) mmol/L Chloride 105.9 (98-107) mmol/L Carbon Dioxide 26 (22-30) mmol/L BUN 7 L (9-20) mg/dL Creatinine 0.6 L (0.8-1.3) mg/dL Glucose 86 (75-100) mg/dL Calcium 8.8 (8.4-10.2) mg/dL - Imaging Chest x-ray: report reviewed, image reviewed
--- NOTE | 2020-04-22 14:10 | Discharge Summary ---
Providers - Providers Date of Admission: 04/19/20 21:18 Date of discharge: 04/22/20 Attending physician: MYRANDA IRELAND 04/19/20 18:28 Consult to Physician [CONS] Stat Comment: Consulting Provider: ALON WILLS Physician Instructions: Reason For Exam: Spontaneous pneumothorax 04/19/20 19:49 Consult to Physician [CONS] Stat Comment: Consulting Provider: ALON WILLS Physician Instructions: Reason For Exam: spontaneous pneumothorax Primary care physician: FRAUD ANALYST Hospitalization Reason for admission: Right sided spontaneous pneumothorax Condition: Stable Pertinent studies: Multiple chest x-rays Procedures: Right chest tube placement on 04/19/2020 Removal of right chest tube on 04/21/2020 Hospital course: 44-year-old obese male patient with past history of smoking , quit 1 year ago had worsening shortness of breath and cough for 3 weeks .patient had chest x-ray at Ds office patient was diagnosed with right-sided pneumothorax with respiratory distress , was sent to the emergency room for further evaluation and management, in the ED surgeon has evaluated the patient and patient had right- sided chest tube placement under waterseal . Admitted to the hospital symptomatically managed serial chest x-rays obtained pneumothorax completely resolved, and on 04/21/2020 Surgeon has completely removed the chest tube, patient remains stable, patient also received empiric antibiotics for his pneumonia Patient symptoms slowly but gradually improved the same 4 to 5 days of IV antibiotics for pneumonia Cleared by surgeon for discharge and follow-up with him in 2 weeks, patient was given 5 additional days of antibiotics. Patient was strongly advised to avoid a travel by airplane for 6 weeks, and follow-up with surgeons office in 2 weeks Today patient is comfortable room air O2 sats resting and ambulatory are above 96-98 No indication for home oxygen Surgeon cleared the patient for discharge and follow-up with him in 2 weeks Patient is hemodynamically and clinically stable at discharge Strongly advised not to fly[air travel] for 6 weeks Discharge diagnosis; --Right-sided pneumothorax; status post chest tube placement Pneumothorax resolved, chest tube removed Follow-up chest x-ray negative --Dyspnea acute respiratory distress ; Requiring oxygen during the hospital stay O2 sats resting in room air more than 98% at discharge No need for home oxygen --Bilateral pneumonia; received antibiotics Rocephin and Zithromax Will DC on cefuroxime for 5 5 more days --SIRS without organ function -Obesity; BMI 38.3 Advised weight reduction, lifestyle changes Diet modification, exercise as tolerated when medically stable Patient is hemodynamically and clinically stable at discharge 04/20/2020 -Status post chest tube placement, repeat chest x-ray showed reexpansion. We will do chest x-ray today. General surgery consult appreciated. Pulmonary consulted -Patient is on IV antibiotics for pneumonia Disposition; per general surgery recommendation. 04/21/2020 -Pneumothorax status post chest tube in place. Cussed with general surgery Dr. Wills and he will do chest x-ray today and will decide if he is able to take out the chest tube. -Chest x-ray from yesterday showed small pneumothorax and unchanged bilateral airspace disease Disposition; will follow general surgery recommendation Disposition: DC-30 STILL A PATIENT Time spent for discharge: 32 min Core Measure Documentation - Palliative Care Palliative Care/ Comfort Measures: Not Applicable - Core Measures Any of the following diagnoses?: none Exam - Constitutional Vitals: Temp Pulse Resp BP Pulse Ox 98.7 F 75 18 119/73 100 04/22/20 11:56 04/22/20 11:56 04/22/20 11:56 04/22/20 11:56 04/22/20 12:14 General appearance: Present: no acute distress, well-nourished - EENT Eyes: Present: PERRL, EOM intact - Neck Neck: Present: supple, normal ROM - Respiratory Respiratory effort: normal Respiratory: bilateral: diminished, negative: rales, rhonchi, wheezing - Cardiovascular Rhythm: regular Heart Sounds: Present: S1 & S2 - Extremities Extremities: no ischemia, No edema - Abdominal General gastrointestinal: Present: soft, non-tender, non-distended, normal bowel sounds - Integumentary Integumentary: Present: clear, warm - Musculoskeletal Musculoskeletal: strength equal bilaterally - Psychiatric Psychiatric: appropriate mood/affect, cooperative - Neurologic Neurologic: CNII-XII intact, moves all extremities Plan Activity: advance as tolerated Diet: regular Additional Instructions: F/u in 's office in 2 weeks. No airplane travel for 6 weeks. Leave right chest dressing in place for an additional 72 hours[3 days]. If you have worsening symptoms contact MD or go to emergency room. Your oxygen levels resting room air and ambulatory room air levels are more than 98%, you do not need home oxygen Follow up with: PRIMARY CARE, [Primary Care Provider] - 3-5 Days ALON WILLS MD [Staff Physician] - 14 Days Prescriptions: cefUROXime [Ceftin] 2 tab PO Q12H #20 tablet Ketorolac [Toradol] 10 mg PO Q6H PRN #20 tablet PRN Reason: Pain
[2020-04-22] MEDS ORDERED: AZITHROMYCIN 250 MG TAB PO SCH (22:00)
== END 2020-04-22 15:36 | disposition home or self-care (01) | DRG 199 ==
LOC: ED 17:08 → 4A 21:18 → OBSVTOIN 21:18 → 4A 22:12
PROVIDERS: ADMIT Hospitalist; ATTEND Internal Medicine
PROC: 0W9930Z Drainage of Right Pleural Cavity with Drainage Device, Percutaneous Approach (ICD-10-PCS; principal; 2020-04-19)
PROC: 0WP9X0Z Removal of Drainage Device from Right Pleural Cavity, External Approach (ICD-10-PCS; 2020-04-21)
DX: J93.83 Other pneumothorax (principal); J18.9 Pneumonia, unspecified organism; R65.10 Systemic inflammatory response syndrome (SIRS) of non-infectious origin without acute organ dysfunction; R06.03 Acute respiratory distress; E66.9 Obesity, unspecified; Z68.38 Body mass index [BMI] 38.0-38.9, adult; Z87.891 Personal history of nicotine dependence; Z71.3 Dietary counseling and surveillance; Z79.899 Other long term (current) drug therapy; Z83.3 Family history of diabetes mellitus
CPT/HCPCS: 36415; 71045; 80048; 85025; 85610; 85730; 94760; G0378; J0456; J0696; J1170; J1644; J2270; J2405